=== PATIENT | female | born 1970 | race Hispanic/Latino ===

== ENCOUNTER 2017-04-07 14:36 | Emergency (ER) | payer MEDICARE, MEDICAID ==
[2017-04-07 14:37] VITALS: BMI 30.5
[2017-04-07 14:58] VITALS: RESP 18
--- NOTE | 2017-04-07 15:14 | C.PDOC ---
History Of Present Illness 46 year old female, whose PMHx includes seizures, presents to the ED for evaluation after having a reported seizure with urinary incontinence earlier today. Patient states she ran out of her anti-epileptic medication a few days ago and was awaiting a refill at her doctor's office when she had the episode. She denies fever, chills, tongue bite, extremity numbness/weakness and has no other complaints at this time. Time Seen by Provider: 04/07/17 15:02 Chief Complaint (Nursing): Seizure History Per: Patient History/Exam Limitations: no limitations Recent Seizure Activity Began: Just Before Arrival Number Of Seizures: One Length Of Seizures (Duration): Unknown Precipitating Factor(s): Missed Dose Of Anti-seizure Medication Associated Symptoms: Incontinence Of Urine Additional History Per: Patient Past Medical History Reviewed: Historical Data, Nursing Documentation, Vital Signs Vital Signs: Last Vital Signs Temp 97.9 F 04/07/17 16:21 Pulse 86 04/07/17 16:21 Resp 18 04/07/17 16:21 BP 148/91 H 04/07/17 16:21 Pulse Ox 99 04/07/17 16:39 - Medical History PMH: Anxiety, Depression, Emphysema, Fractures (FINGERS), Gall Bladder Disease, HTN, Osteoporosis, Seizures Denies: Chronic Kidney Disease Surgical History: No Surg Hx - [facility] Procedures INTRAOPER CHOLANGIOGRAM (06/06/14) LAPAROSCOPIC CHOLECYSTECTOMY (06/06/14) LAPAROSCOPIC LIVER BIOPSY (06/06/14) TETANUS TOXOID ADMINIST (03/03/14) Family History: States: Unknown Family Hx - Social History Hx Tobacco Use: Yes Hx Alcohol Use: Yes Hx Substance Use: Yes - Immunization History Hx Tetanus Toxoid Vaccination: No Hx Influenza Vaccination: Yes (12/2013) Hx Pneumococcal Vaccination: No Review Of Systems Constitutional: Negative for: Fever, Chills Genitourinary: Positive for: Incontinence (urinary ) Neurological: Positive for: Seizures. Negative for: Weakness, Numbness Physical Exam - Physical Exam Appears: Non-toxic, No Acute Distress Skin: Normal Color, Warm, Dry Head: Atraumatic, Normacephalic Eye(s): bilateral: Normal Inspection Oral Mucosa: Moist Tongue: No Bite Neck: Supple Chest: Symmetrical, No Deformity, No Tenderness Cardiovascular: Rhythm Regular, No Murmur Respiratory: Normal Breath Sounds, No Rales, No Rhonchi, No Wheezing Gastrointestinal/Abdominal: Soft, No Tenderness, No Guarding, No Rebound Extremity: Normal ROM, Capillary Refill (less than 2 seconds ) Neurological/Psych: Oriented x3, Normal Speech, Normal Cognition Gait: Steady ED Course And Treatment O2 Sat by Pulse Oximetry: 99 (on RA) Pulse Ox Interpretation: Normal Medical Decision Making Medical Decision Making: pt declines any lab work, requests refill of antiepileptic. will dose. signs ama. Disposition - Disposition Referrals: Briana Alanis MD [Staff Provider] - Disposition: AGAINST MEDICAL ADVICE Disposition Time: 04:00 Condition: UNKNOWN Additional Instructions: please follow up with your doctor. return to er with worsening symptoms or concerns. you are declining any lab evaluation. you are able to return to er with any worsening symptoms or concerns. Prescriptions: Lamotrigine [Lamictal] 200 mg PO BID #28 tab levETIRAcetam [Keppra] 250 mg PO BID #28 tab Instructions: Recurrent Seizures in Adults (ED) Forms: [employer] (Frisian) - Clinical Impression Clinical Impression: Seizure - Scribe Statement The provider has reviewed the documentation as recorded by the Scribe (Saima Grant) Provider Attestation: All medical record entries made by the Scribe were at my direction and personally dictated by me. I have reviewed the chart and agree that the record accurately reflects my personal performance of the history, physical exam, medical decision making, and the department course for this patient. I have also personally directed, reviewed, and agree with the discharge instructions and disposition.
[2017-04-07 16:22] VITALS: BP 148/91; PULSE 86; TEMP 97.9
[2017-04-07 16:39] VITALS: O2SAT 99
== END 2017-04-07 16:25 | disposition left against medical advice (07) ==
LOC: C.ER 14:36
DX: G40.909 Epilepsy, unspecified, not intractable, without status epilepticus (principal)

== ENCOUNTER 2018-01-22 20:20 | Inpatient (IN) | payer MEDICARE, MEDICAID ==
[2018-01-22 20:21] VITALS: BMI 30.5
--- NOTE | 2018-01-22 21:31 | C.PDOC ---
History Of Present Illness 47 y/o female, w/PMhx of seizures and HTN, BIBA for evaluation of complaining of left lower back pain which has been present for the past few hours. Patient states that she was sitting on her couch when she had an episode of unconsci ousness. After the episode, she had back pain. Patient states that the pain is severe, constant, and non-radiating. She notes that she has about 1 seizure per year and her last seizure was a very long time ago. She states that the seizures are usually followed by abdominal cramping and an odd smell. She notes that she did have abdominal cramping today. Denies having bleeding and head trauma. PMD: Dr.Hemant Pena Neurologist: Time Seen by Provider: 01/22/18 20:36 Chief Complaint (Nursing): Back Pain History Per: Patient History/Exam Limitations: no limitations Onset/Duration Of Symptoms: Hrs Current Symptoms Are (Timing): Still Present Severity: Moderate Past Medical History Reviewed: Historical Data, Nursing Documentation, Vital Signs Vital Signs: Last Vital Signs Temp 98.3 F 01/22/18 20:37 Pulse 110 H 01/22/18 20:37 Resp 18 01/22/18 20:37 BP 118/80 01/22/18 20:37 Pulse Ox 97 01/22/18 20:37 - Medical History PMH: Anxiety, Depression, Emphysema, Fractures (FINGERS), Gall Bladder Disease, HTN, Osteoporosis, Seizures Denies: Chronic Kidney Disease Surgical History: Cholecystectomy - [facility] Procedures INTRAOPER CHOLANGIOGRAM (06/06/14) LAPAROSCOPIC CHOLECYSTECTOMY (06/06/14) LAPAROSCOPIC LIVER BIOPSY (06/06/14) TETANUS TOXOID ADMINIST (03/03/14) Family History: States: No Known Family Hx - Social History Hx Tobacco Use: Yes Hx Alcohol Use: Yes Hx Substance Use: No (denies) - Immunization History Hx Tetanus Toxoid Vaccination: No Hx Influenza Vaccination: No (12/2013) Hx Pneumococcal Vaccination: No Review Of Systems Except As Marked, All Systems Reviewed And Found Negative. Constitutional: Negative for: Fever, Chills Gastrointestinal: Positive for: Other (abdominal cramping). Negative for: N ausea, Vomiting Musculoskeletal: Positive for: Back Pain Neurological: Negative for: Headache, Dizziness Physical Exam - Physical Exam Additional Physical Exam Comments: Constitutional: No acute distress. Head: Normocephalic. Atraumatic. Eyes: PERRL. ENT: Moist mucous membranes. Neck: Supple. No Midline tenderness. Cardiovascular: Regular rate. Radial pulse 2+ bilaterally. Chest: No tenderness. Respiratory: Clear to auscultation bilaterally. GI: Soft. Nontender. Nondistended. Back: No CVA tenderness. No Midline tenderness. Musculoskeletal: No tenderness or swelling of extremities. Skin: No rash. Neurologic: Alert, no focal deficit. ED Course And Treatment - Laboratory Results Result Diagrams: 01/22/18 21:30 01/22/18 21:30 O2 Sat by Pulse Oximetry: 97 (RA) Pulse Ox Interpretation: Normal - CT Scan/US CT abdomen Other Rad Studies (CT/US): Read By Radiologist, Radiology Report Reviewed CT/US Interpretation: Impression. 1. Bilobed cystic lesion in the left adnexal region, which could represent hydrosalpinx/tubo ovarian abscess although cystic ovarian neoplasm is not completely excluded. Follow up is recommended with pelvic MRI pre- and post-contrast. 2. Left renal nonobstructing calculus. Head CT Other Rad Studies (CT/US): Read By Radiologist, Radiology Report Reviewed CT/US Interpretation: IMPRESSION: Normal unenhanced CT scan of the brain. Medical Decision Making Medical Decision Making: Plan: --Labs --CXR --UA --CT-Abd & Pelv. --Toradol IV At approximately 11:20pm, patient had seizure in ED, bit tongue, ativan administered. Now postical. Performed after seizure in ED, EKG Sinus rhythm, 133 bpm, no ST elevations Dr. Grant accepts patient to his service. Disposition Discussed With : Austen Grant Doctor Will See Patient In The: Hospital - Disposition Disposition: HOSPITALIZED Disposition Time: 00:47 Condition: GUARDED Forms: [employer] [facility] ([employer]) - Clinical Impression Clinical Impression: Recurrent seizures - Scribe Statement The provider has reviewed the documentation as recorded by the Georgeibrober Sanchez Provider Attestation: All medical record entries made by the Scribe were at my direction and personally dictated by me. I have reviewed the chart and agree that the record accurately reflects my personal performance of the history, physical exam, medical decision making, and the department course for this patient. I have also personally directed, reviewed, and agree with the discharge instructions and disposition.
[2018-01-22 21:35] LABS: BASO # 0.2 K/uL (0.0-0.2); HEMOGLOBIN 14.2 g/dL (11.0-16.0); LYMPH # 1.3 K/uL (1.0-4.3); LYMPH % 7.3 % (20.0-40.0); MEAN CELL VOLUME 94.6 fL (81.0-99.0); MEAN CORPUSCULAR HEMOGLOBIN 32.9 pg (27.0-31.0); MEAN CORPUSCULAR HGB CONC 34.8 g/dL (33.0-37.0); MEAN PLATELET VOLUME 8.2 fL (7.2-11.7); MONO # 0.5 K/uL (0.0-0.8); NEUT # 15.5 K/uL (1.8-7.0); NEUT % 88.7 % (50.0-75.0); NRBC % 0.1 % (0.0-2.0); PLATELET COUNT 327 K/uL (130-400); RBC 4.32 Mil/uL (3.80-5.20); RED CELL DISTRIBUTION WIDTH 13.3 % (11.5-14.5); WHITE BLOOD COUNT 17.5 K/uL (4.8-10.8)
[2018-01-22 21:46] LABS: ALB/GLOB RATIO 1.3 (1.0-2.1); ALBUMIN 4.5 g/dL (3.5-5.0); CALCIUM 10.2 mg/dl (8.6-10.4)
[2018-01-22] MEDS ORDERED: Iodixanol 320 MG/ML 100 ML BOTTLE IV ONE (21:56)
[2018-01-22 22:13] LABS: SQUAMOUS EPITHIAL 5 /hpf (0-5); URINE BACTERIA RARE (<OCC); URINE BILIRUBIN NEGATIVE (NEGATIVE); URINE BLOOD 1+ (NEGATIVE); URINE CLARITY Hazy (Clear); URINE COLOR Yellow (YELLOW); URINE GLUCOSE (UA) NORMAL (Normal); URINE LEUKOCYTE ESTERASE NEG Leu/uL (Negative); URINE PROTEIN 1+ mg/dL (NEGATIVE); URINE UROBILINOGEN NORMAL mg/dL (0.2-1.0)
[2018-01-22 22:14] LABS: HCG,QUALITATIVE URINE NEGATIVE (NEGATIVE)
[2018-01-22 22:37] LABS: BANDS 1 % (0-2); LYMPHOCYTE 11 % (20-40); MONOCYTE 1 % (0-10); NEUTROPHIL 87 % (50-75); PLATELET CLUMPS PRESENT; PLATELET ESTIMATE NORMAL (NORMAL); TOTAL CELLS COUNTED 100
[2018-01-22] MEDS ORDERED: Sodium Chloride 0.9% 1,000 ML ONE (23:26)
[2018-01-22 23:52] LABS: BARBITURATES, UR NEGATIVE (NEGATIVE); BENZODIAZEPINES, UR NEGATIVE (NEGATIVE); OPIATES, UR NEGATIVE (NEGATIVE); PHENCYCLIDINE, UR NEGATIVE (NEGATIVE)
[2018-01-23] MEDS ORDERED: levETIRAcetam 500 MG in Sodium Chloride 0.9% 100 ML IVPB STA (00:44)
--- NOTE | 2018-01-23 08:20 | RAD ---
Date of service: 01/22/2018 HISTORY: seizure COMPARISON: 04/11/2015 FINDINGS: LUNGS: The lungs are well inflated. There is mild pulmonary venous congestion. PLEURA: No pleural effusions or pneumothorax. CARDIOVASCULAR: The heart is normal in size. No aortic atherosclerotic calcification present. OSSEOUS STRUCTURES: Within normal limits for the patient's age. VISUALIZED UPPER ABDOMEN: Normal. OTHER FINDINGS: None. IMPRESSION: No active pulmonary disease.
--- NOTE | 2018-01-23 08:25 | CT ---
Date of service: 01/23/2018 PROCEDURE: CT HEAD WITHOUT CONTRAST. HISTORY: recurrent seizures COMPARISON: None available. TECHNIQUE: Axial computed tomography images were obtained through the head/brain without intravenous contrast. Radiation dose: Total exam DLP = 1001.96 mGy-cm. This CT exam was performed using one or more of the following dose reduction techniques: Automated exposure control, adjustment of the mA and/or kV according to patient size, and/or use of iterative reconstruction technique. FINDINGS: Evidence of contrast from preceding CT of the abdomen and pelvis HEMORRHAGE: No intracranial hemorrhage. BRAIN: No mass effect or edema. No atrophy or chronic microvascular ischemic changes.Please note that MRI with diffusion imaging is more sensitive in the detection of acute ischemic event. VENTRICLES: No hydrocephalus. CALVARIUM: Unremarkable. PARANASAL SINUSES: Unremarkable as visualized. No significant inflammatory changes. MASTOID AIR CELLS: Under aeration of the left mastoid air cells; correlate for history of mastoiditis. The right mastoid air cells appear clear. OTHER FINDINGS: None. IMPRESSION: No acute intracranial pathology identified. Under aeration of the left mastoid air cells; correlate for history of mastoiditis. Preliminary impression was provided by [employer].
--- NOTE | 2018-01-23 09:46 | CT ---
Date of service: 01/22/2018 PROCEDURE: CT Abdomen and Pelvis with contrast HISTORY: Abdominal pain, vomiting, r sided back pain after seizure COMPARISON: None. TECHNIQUE: CT scan of the abdomen and pelvis was performed after administration of intravenous contrast. Oral contrast was not administered. Coronal and sagittal reformatted images were obtained. Contrast dose: 100 mL Visipaque 320 Radiation dose: Total exam DLP = 943.66 mGy-cm. This CT exam was performed using one or more of the following dose reduction techniques: Automated exposure control, adjustment of the mA and/or kV according to patient size, and/or use of iterative reconstruction technique. FINDINGS: LOWER THORAX: The visualized lungs are clear. LIVER: Normal in size with homogeneous enhancement. No gross lesion or ductal dilatation. GALLBLADDER AND BILE DUCTS: Well distended. No calcified gallstones, wall thickening or pericholecystic fluid. PANCREAS: Normal in size with homogeneous enhancement. No gross lesion or ductal dilatation. SPLEEN: Normal in size and appearance. ADRENALS: No discrete nodule. KIDNEYS AND URETERS: Normal in size with homogeneous enhancement. There is a 4 mm nonobstructing stone in the left interpolar region. No hydronephrosis. No solid mass. VASCULATURE: No aortic aneurysm. BOWEL: Evaluation of the bowel is limited in the absence of oral contrast. The small bowel loops are normal in caliber. The colon is grossly normal in appearance. No bowel wall thickening or obstruction. APPENDIX: Normal appendix. PERITONEUM: No free fluid. No free air. LYMPH NODES: No enlarged lymph nodes. BLADDER: Well distended and normal in appearance. REPRODUCTIVE: The uterus is normal in size. There is a 3.8 x 6.3 cm cystic mass in the left adnexa. BONES: There is an age indeterminate superior endplate compression fracture in the L1 vertebral body with approximately 50 % loss of central vertebral height, new since prior radiographs from February 2014. No retropulsion. OTHER FINDINGS: None. IMPRESSION: 1. No acute abdominal or pelvic abnormality. 2. 3.8 x 6.3 cm cystic mass in the left adnexa, the differential considerations include simple cyst, cystadenoma and cystadenocarcinoma. Clinical follow-up is advised and given the size of the cystic mass gynecologic consult is recommended. 3. Age indeterminate superior endplate compression fracture in the L1 vertebral body with approximately 50% loss of central vertebral height without retropulsion, new since February 2014. With the stated history of trauma, the possibility of this being an acute fracture is likely however MRI without intravenous contrast may be performed for definitive evaluation of the age of the fracture. A preliminary report was provided by [employer]. The final report is tagged to the PA review folder.
[2018-01-23 11:18] LABS: HEMOGLOBIN 12.9 g/dL (11.0-16.0); MEAN CELL VOLUME 94.9 fL (81.0-99.0); MEAN CORPUSCULAR HEMOGLOBIN 33.2 pg (27.0-31.0); MEAN PLATELET VOLUME 8.7 fL (7.2-11.7); RBC 3.88 Mil/uL (3.80-5.20); RED CELL DISTRIBUTION WIDTH 13.4 % (11.5-14.5); WHITE BLOOD COUNT 15.6 K/uL (4.8-10.8)
[2018-01-23 11:36] LABS: CALCIUM 8.9 mg/dl (8.6-10.4)
[2018-01-23] MEDS: Pantoprazole 40 mg EC Tab PO SCH (12:14)
[2018-01-23] MEDS: Metoprolol Succinate 25 mg XL Tab PO SCH (12:15)
--- NOTE | 2018-01-23 15:50 | MRI ---
Date of service: 01/23/2018 PROCEDURE: MR LUMBAR SPINE WITHOUT CONTRAST HISTORY: L1 COMPRESSION FX ON CT; + BACK PAIN COMPARISON: None available. TECHNIQUE: Multiecho multiplanar sequences were performed through the lumbar spine without the use of intravenous contrast. FINDINGS: There is normal alignment of the lumbar vertebral bodies. There is normal lumbar lordosis. There is an acute superior endplate compression fracture in the L1 vertebral body with approximately 50 % loss of central vertebral height and mild posterior superior retropulsion of fracture fragment which indents the ventral thecal sac without spinal canal stenosis. There is associated bone marrow edema/contusion in the L1 vertebral body. There is a hemangioma in the right L4 vertebral body. The conus medullaris terminates at a normal level and the nerve roots of cauda equina are normal. Paraspinous soft tissues are normal. Imaged portion of the retroperitoneum is within normal limits. T12-L1: No large disc herniation, neural foraminal or spinal canal stenosis. L1-2: No disc herniation, spinal canal stenosis or neural foraminal narrowing. L2-3: Mild posterior disc bulge and mild ligamentum flavum infolding without central spinal canal stenosis. Mild bilateral facet arthropathy contribute to mild neural foraminal narrowing. L3-4: Diffuse posterior disc bulge in conjunction with mild ligamentum flavum infolding result in mild spinal canal stenosis. Moderate bilateral facet arthropathy contribute to mild neural foraminal narrowing. L4-5: Diffuse posterior disc bulge with superimposed small central disc protrusion in conjunction with mild ligamentum flavum infolding result in mild spinal canal stenosis. Also noted is superimposed left foraminal and far lateral annular tear and disc protrusion which abut the exiting left L4 nerve root. Moderate bilateral facet arthropathy contribute to mild right and moderate left neural foraminal narrowing. L5-S1: Mild posterior disc bulge and mild ligamentum flavum infolding without central spinal canal stenosis. Mild facet arthropathy without neural foraminal narrowing. OTHER FINDINGS: None. IMPRESSION: 1. Acute superior endplate compression fracture in the L1 vertebral body with approximately 50% loss of central vertebral height and mild posterosuperior retropulsion of fracture fragment which indents the ventral thecal sac without cord compression or central spinal canal stenosis. 2. Mild multilevel degenerative disc disease, worse at L4-5 with a diffuse posterior disc bulge and superimposed left foraminal and far lateral annular tear and disc protrusions which abut the exiting left L4 nerve root with resultant mild spinal canal stenosis, mild right and moderate left neural foraminal narrowing.
--- NOTE | 2018-01-23 15:53 | MRI ---
Date of service: 01/23/2018 PROCEDURE: MR THORACIC SPINE WITHOUT CONTRAST HISTORY: L1 COMPRESSION FX ON CT; + BACK PAIN COMPARISON: None available. TECHNIQUE: Multiecho multiplanar sequences were performed through the thoracic spine without the use of intravenous contrast. FINDINGS: ALIGNMENT: There is normal alignment of the thoracic vertebral bodies. There is normal thoracic kyphosis. VERTEBRA: Vertebral body height are preserved. No acute fracture in the thoracic spine. MARROW: There are multilevel Schmorl's nodes in the mid and lower thoracic spine. The largest Elida node is seen at the superior endplate of T12 vertebral body with mild surrounding vasogenic edema. Otherwise, bone marrow signal is within normal limits. PARASPINAL SOFT TISSUES: The paraspinous soft tissues are normal. CORD: The thoracic cord is normal in contour, caliber and has normal intrinsic signal. DISCS: Mild multilevel disc degeneration with loss of normal T2 signal. No evidence of large disc herniation, neural foraminal or spinal canal stenosis. OTHER FINDINGS: None. IMPRESSION: 1. No acute fracture in the thoracic spine. 2. Mild multilevel degenerative disc disease with multilevel Schmorl's nodes, the largest at the superior endplate of T12 vertebral body with mild surrounding vasogenic edema. No spinal canal stenosis or neural foraminal narrowing.
[2018-01-23] MEDS: Potassium Chloride 20 mEq ER Tab PO SCH (17:28)
--- NOTE | 2018-01-23 20:00 | CP.PCM.HP ---
Past Patient History - Infectious Disease Hx of Infectious Diseases: None - Past Medical History & Family History Past Medical History?: Yes - Past Social History Smoking Status: Never Smoked - CARDIAC Hx Hypertension: Yes - PULMONARY Hx Emphysema: Yes - NEUROLOGICAL Hx Seizures: Yes - HEENT Hx HEENT Problems: Yes (GLASSES) - RENAL Hx Chronic Kidney Disease: No - ENDOCRINE/METABOLIC Hx Endocrine Disorders: No - HEMATOLOGICAL/ONCOLOGICAL Hx Blood Disorders: No - INTEGUMENTARY Hx Dermatological Problems: No - MUSCULOSKELETAL/RHEUMATOLOGICAL Hx Falls: No Hx Fractures: Yes (FINGERS) Hx Osteoporosis: Yes - GASTROINTESTINAL Hx Gall Bladder Disease: Yes - GENITOURINARY/GYNECOLOGICAL Hx Genitourinary Disorders: No - PSYCHIATRIC Hx Anxiety: Yes Hx Depression: Yes Hx Substance Use: No (denies) - SURGICAL HISTORY Hx Cholecystectomy: Yes - ANESTHESIA Hx Anesthesia: Yes Hx Anesthesia Reactions: No Hx Malignant Hyperthermia: No Meds Allergies/Adverse Reactions: Allergies Allergy/AdvReac Type Severity Reaction Status Date / Time No Known Allergies Allergy Verified 04/07/17 14:58 Physical Exam - Constitutional Appears: Well - Head Exam Head Exam: ATRAUMATIC, NORMAL INSPECTION, NORMOCEPHALIC - Eye Exam Eye Exam: EOMI, Normal appearance, PERRL Pupil Exam: NORMAL ACCOMODATION, PERRL - ENT Exam ENT Exam: Mucous Membranes Moist, Normal Exam - Neck Exam Neck exam: Positive for: Normal Inspection - Respiratory Exam Respiratory Exam: Decreased Breath Sounds - Cardiovascular Exam Cardiovascular Exam: REGULAR RHYTHM, +S1, +S2 - GI/Abdominal Exam GI & Abdominal Exam: Soft - Rectal Exam Rectal Exam: Deferred Results - Vital Signs Recent Vital Signs: Last Vital Signs Temp 98.4 F 01/23/18 16:00 Pulse 85 01/23/18 18:00 Resp 20 01/23/18 16:00 BP 97/77 L 01/23/18 16:00 Pulse Ox 95 01/23/18 16:00 - Labs Result Diagrams: 01/23/18 11:11 01/23/18 11:11 Labs: Laboratory Results - last 24 hr 01/22/18 01/22/18 01/22/18 21:30 21:30 22:02 WBC 17.5 H RBC 4.32 Hgb 14.2 Hct 40.9 MCV 94.6 D MCH 32.9 H MCHC 34.8 RDW 13.3 Plt Count 327 MPV 8.2 Neut % (Auto) 88.7 H Lymph % (Auto) 7.3 L [place] % (Auto) 3.0 Eos % (Auto) 0.0 Baso % (Auto) 1.0 Neut # (Auto) 15.5 H Lymph # (Auto) 1.3 [place] # (Auto) 0.5 Eos # (Auto) 0.0 Baso # (Auto) 0.2 Neutrophils % (Manual) 87 H Band Neutrophils % 1 Lymphocytes % (Manual) 11 L Monocytes % (Manual) 1 Platelet Estimate Normal Plt Clumps, EDTA Present Sodium 142 Potassium 3.3 L Chloride 102 Carbon Dioxide 24 Anion Gap 19 BUN 9 Creatinine 1.2 Est GFR ( Amer) 58 Est GFR (Non-Af Amer) 48 Random Glucose 119 H Calcium 10.2 Total Bilirubin 0.8 AST 21 ALT 22 Alkaline Phosphatase 116 Total Protein 8.0 Albumin 4.5 Globulin 3.5 Albumin/Globulin Ratio 1.3 Lipase 53 Urine Color Yellow Urine Clarity Hazy Urine pH 5.0 Ur Specific Adrian 1.015 Urine Protein 1+ H Urine Glucose (UA) Normal Urine Ketones Negative Urine Blood 1+ H Urine Nitrate Negative Urine Bilirubin Negative Urine Urobilinogen Normal Ur Leukocyte Esterase Neg Urine WBC (Auto) 3 Urine RBC (Auto) 5 H Ur Squamous Epith Cells 5 Urine Bacteria Rare Urine HCG, Qual Negative Urine Opiates Screen Urine Methadone Screen Ur Barbiturates Screen Ur Phencyclidine Scrn Ur Amphetamines Screen U Benzodiazepines Scrn U Oth Cocaine Metabols U Cannabinoids Screen Alcohol, Quantitative 01/22/18 01/22/18 01/23/18 23:31 23:31 11:11 WBC 15.6 H RBC 3.88 Hgb 12.9 Hct 36.8 MCV 94.9 MCH 33.2 H MCHC 35.0 RDW 13.4 Plt Count 261 MPV 8.7 Neut % (Auto) Lymph % (Auto) [place] % (Auto) Eos % (Auto) Baso % (Auto) Neut # (Auto) Lymph # (Auto) [place] # (Auto) Eos # (Auto) Baso # (Auto) Neutrophils % (Manual) Band Neutrophils % Lymphocytes % (Manual) Monocytes % (Manual) Platelet Estimate Plt Clumps, EDTA Sodium Potassium Chloride Carbon Dioxide Anion Gap BUN Creatinine Est GFR ( Amer) Est GFR (Non-Af Amer) Random Glucose Calcium Total Bilirubin AST ALT Alkaline Phosphatase Total Protein Albumin Globulin Albumin/Globulin Ratio Lipase Urine Color Urine Clarity Urine pH Ur Specific Adrian Urine Protein Urine Glucose (UA) Urine Ketones Urine Blood Urine Nitrate Urine Bilirubin Urine Urobilinogen Ur Leukocyte Esterase Urine WBC (Auto) Urine RBC (Auto) Ur Squamous Epith Cells Urine Bacteria Urine HCG, Qual Urine Opiates Screen Negative Urine Methadone Screen Negative Ur Barbiturates Screen Negative Ur Phencyclidine Scrn Negative Ur Amphetamines Screen Negative U Benzodiazepines Scrn Negative U Oth Cocaine Metabols Negative U Cannabinoids Screen Positive H Alcohol, Quantitative < 10 01/23/18 11:11 WBC RBC Hgb Hct MCV MCH MCHC RDW Plt Count MPV Neut % (Auto) Lymph % (Auto) [place] % (Auto) Eos % (Auto) Baso % (Auto) Neut # (Auto) Lymph # (Auto) [place] # (Auto) Eos # (Auto) Baso # (Auto) Neutrophils % (Manual) Band Neutrophils % Lymphocytes % (Manual) Monocytes % (Manual) Platelet Estimate Plt Clumps, EDTA Sodium 140 Potassium 3.1 L Chloride 106 Carbon Dioxide 24 Anion Gap 13 BUN 10 Creatinine 1.2 Est GFR ( Amer) 58 Est GFR (Non-Af Amer) 48 Random Glucose 108 H Calcium 8.9 Total Bilirubin AST ALT Alkaline Phosphatase Total Protein Albumin Globulin Albumin/Globulin Ratio Lipase Urine Color Urine Clarity Urine pH Ur Specific Adrian Urine Protein Urine Glucose (UA) Urine Ketones Urine Blood Urine Nitrate Urine Bilirubin Urine Urobilinogen Ur Leukocyte Esterase Urine WBC (Auto) Urine RBC (Auto) Ur Squamous Epith Cells Urine Bacteria Urine HCG, Qual Urine Opiates Screen Urine Methadone Screen Ur Barbiturates Screen Ur Phencyclidine Scrn Ur Amphetamines Screen U Benzodiazepines Scrn U Oth Cocaine Metabols U Cannabinoids Screen Alcohol, Quantitative
[2018-01-24] MEDS: Potassium Chloride 20 mEq ER Tab PO SCH (09:54)
[2018-01-24] MEDS: Metoprolol Succinate 25 mg XL Tab PO SCH (09:55)
[2018-01-24] MEDS: Pantoprazole 40 mg EC Tab PO SCH (09:55)
[2018-01-24] MEDS ORDERED: Influenza Vaccine 60 MCG/0.5 ML SYR (3 yr & up) IM ONE (10:00)
[2018-01-24] MEDS ORDERED: Pneumococcal 23-Valent Vaccine IM ONE (10:00)
--- NOTE | 2018-01-24 13:51 | CP.PCM.PN ---
Subjective - Date & Time of Evaluation Date of Evaluation: 01/24/18 Time of Evaluation: 09:30 - Subjective Subjective: clinically same Objective - Vital Signs/Intake and Output Vital Signs (last 24 hours): Temp Pulse Resp BP Pulse Ox 98.0 F 69 18 100/67 95 01/24/18 07:00 01/24/18 07:00 01/24/18 07:00 01/24/18 07:00 01/24/18 07:00 - Medications Medications: Current Medications Acetaminophen (Tylenol 325mg Tab) 650 mg PO Q6 PRN PRN Reason: Pain, Mild (1-3) Last Admin: 01/24/18 04:45 Dose: 650 mg Hydrochlorothiazide (Microzide) 12.5 mg PO DAILY [facility] Last Admin: 01/24/18 09:55 Dose: 12.5 mg Lamotrigine (Lamictal) 200 mg PO BID [facility] Last Admin: 01/24/18 09:55 Dose: 200 mg Levetiracetam (Keppra) 750 mg PO BID [facility] Last Admin: 01/24/18 09:54 Dose: 750 mg Lisinopril (Zestril) 20 mg PO DAILY [facility] Last Admin: 01/24/18 09:59 Dose: 20 mg Loratadine (Claritin) 10 mg PO DAILY [facility] Last Admin: 01/24/18 09:55 Dose: 10 mg Metoprolol Succinate (Toprol Xl) 25 mg PO DAILY [facility] Last Admin: 01/24/18 09:55 Dose: 25 mg Pantoprazole Sodium (Protonix Ec Tab) 40 mg PO DAILY [facility] Last Admin: 01/24/18 09:55 Dose: 40 mg - Labs Labs: 01/23/18 11:11 01/23/18 11:11
--- NOTE | 2018-01-24 15:05 | CP.PCM.CON ---
History of Present Illness - History of Present Illness History of Present Illness: SPINE Pt seen and examined. Full consult dictated. Rec surgical stabilization with T12-L2 fusion. Other option is for pt to wear TLSO whenever up for next 2-3 months. The brace may still not prevent further settling and collapse at the fx site, and the resultant increase in kyphosis may require surgery at that time. Pt wishes to think about it and discuss with family. Past Patient History - Infectious Disease Hx of Infectious Diseases: None - Past Medical History & Family History Past Medical History?: Yes - Past Social History Smoking Status: Never Smoked - CARDIAC Hx Hypertension: Yes - PULMONARY Hx Emphysema: Yes - NEUROLOGICAL Hx Seizures: Yes - HEENT Hx HEENT Problems: Yes (GLASSES) - RENAL Hx Chronic Kidney Disease: No - ENDOCRINE/METABOLIC Hx Endocrine Disorders: No - HEMATOLOGICAL/ONCOLOGICAL Hx Blood Disorders: No - INTEGUMENTARY Hx Dermatological Problems: No - MUSCULOSKELETAL/RHEUMATOLOGICAL Hx Falls: No Hx Fractures: Yes (FINGERS) Hx Osteoporosis: Yes - GASTROINTESTINAL Hx Gall Bladder Disease: Yes - GENITOURINARY/GYNECOLOGICAL Hx Genitourinary Disorders: No - PSYCHIATRIC Hx Anxiety: Yes Hx Depression: Yes Hx Substance Use: No (denies) - SURGICAL HISTORY Hx Cholecystectomy: Yes - ANESTHESIA Hx Anesthesia: Yes Hx Anesthesia Reactions: No Hx Malignant Hyperthermia: No Meds Allergies/Adverse Reactions: Allergies Allergy/AdvReac Type Severity Reaction Status Date / Time No Known Allergies Allergy Verified 04/07/17 14:58 - Medications Medications: Current Medications Acetaminophen (Tylenol 325mg Tab) 650 mg PO Q6 PRN PRN Reason: Pain, Mild (1-3) Last Admin: 01/24/18 04:45 Dose: 650 mg Hydrochlorothiazide (Microzide) 12.5 mg PO DAILY [facility] Last Admin: 01/24/18 09:55 Dose: 12.5 mg Lamotrigine (Lamictal) 200 mg PO BID [facility] Last Admin: 01/24/18 09:55 Dose: 200 mg Levetiracetam (Keppra) 750 mg PO BID [facility] Last Admin: 01/24/18 09:54 Dose: 750 mg Lisinopril (Zestril) 20 mg PO DAILY [facility] Last Admin: 01/24/18 09:59 Dose: 20 mg Loratadine (Claritin) 10 mg PO DAILY [facility] Last Admin: 01/24/18 09:55 Dose: 10 mg Metoprolol Succinate (Toprol Xl) 25 mg PO DAILY [facility] Last Admin: 01/24/18 09:55 Dose: 25 mg Pantoprazole Sodium (Protonix Ec Tab) 40 mg PO DAILY [facility] Last Admin: 01/24/18 09:55 Dose: 40 mg Results - Vital Signs Recent Vital Signs: Last Vital Signs Temp 98.0 F 01/24/18 07:00 Pulse 69 01/24/18 07:00 Resp 18 01/24/18 07:00 BP 100/67 01/24/18 07:00 Pulse Ox 95 01/24/18 07:00 - Labs Result Diagrams: 01/23/18 11:11 01/23/18 11:11
[2018-01-24 17:31] LABS: ALB/GLOB RATIO 1.4 (1.0-2.1); ALBUMIN 4.3 g/dL (3.5-5.0); CALCIUM 9.3 mg/dl (8.6-10.4)
--- NOTE | 2018-01-24 21:56 | CON ---
DATE: 01/24/2018 REASON FOR CONSULTATION: Fracture, spine. HISTORY OF PRESENT ILLNESS: The patient is a 47 a woman who states she was at home on, she believes when she evidently went unconscious. She does not recall exactly what happened or how she was found or where she was found. She cannot tell me if she know she fell because she was on the floor, etc. She was brought to the emergency room. She states after this happened, she had acute onset of pain in her back. She denies having any issues with their back, such as this prior to this episode. She states she never lost control of her bowel or bladder. She does not complain of any pain radiating into the legs. If she lays just without moving, she is relatively comfortable but as soon as she tries to move, she states the pain goes up to at least 8/10. PAST MEDICAL HISTORY: Significant for hypertension, emphysema, and seizure disorder. She states she has not had seizure in years, as she has been on medication until this happened, if it was indeed another seizure. MEDICATIONS: Medicines are as listed on the chart. ALLERGIES: SHE DENIES ANY ALLERGIES TO ANY MEDICATIONS. PAST SURGICAL HISTORY: Significant for cholecystectomy many years ago. REVIEW OF SYSTEMS: She does state she had a bone density test done many years ago when she was first placed on the seizure medication, and she was told she had osteoporosis, although she was never put on any kind of medication for it nor has she been taking any kind of calcium/vitamin D regimens. She states she did have a history of other fractures, but it was evidently fractured stingers following a fall where she fell out onto her outstretched hands. Otherwise, no spontaneous fractures or anything of that nature. SOCIAL HISTORY: She states she was a two-pack a day smoker since she was 12 and quit 2 years ago. PHYSICAL EXAMINATION EXTREMITIES: She has tenderness to palpation in the thoracolumbar junction. No other tenderness lower down the lumbar region. She moves both lower extremities fully and actively. Sensation is intact to light touch. She has excellent motor strength throughout. Reflexes are intact and symmetrical. No clonus is present. Babinski showed toes downgoing bilaterally. Decent distal pulses. DIAGNOSTIC DATA: MRI of lumbar spine shows a significant compression fracture of L1. Technically, is a burst fracture, the superior posterior corner is retropulsed into canal and is just abutting the ventral surface of the cord, but not cause any significant deformity. Again, she has fractures depressed more than 50% of the vertebral height. IMPRESSION: Fracture L1. Technically, this is a burst fracture and is unstable as she has compressed more than 50% of the vertebral body. However, she is neurologically intact. She is at this point resistant to any kind of surgical procedure which was explained to her to stabilize this fracture and would prevent any further collapse, most likely prevent any further collapse at the fracture site. The other option would be to put her in a TLSO brace, which would prevent any excessive flexion/extension movements but would not prevent completely any type of settling at the fracture site with her standing and adjusting the pull of gravity. She had me speak to her brother on the phone. I explained this as well. They are going to talk it over and decide what they would like to do. I explained that we could not get anybody here until Friday in terms of trying to fit her with a brace. If they opted for this surgery, she would not need the brace and we will tentatively plan on doing this Friday as well, pending medical clearance. She states she understood everything as explained to her and will talk it over with the family and then let us know. Thank you for allowing me to participate in the care of your patient. Cas Smith MD
[2018-01-24] MEDS ORDERED: Potassium Chloride 20 mEq ER Tab PO ONE (22:00)
[2018-01-25] MEDS: Metoprolol Succinate 25 mg XL Tab PO SCH (10:21)
[2018-01-25] MEDS: Pantoprazole 40 mg EC Tab PO SCH (10:22)
--- NOTE | 2018-01-25 14:46 | CP.PCM.PN ---
Subjective - Date & Time of Evaluation Date of Evaluation: 01/25/18 Time of Evaluation: 09:30 - Subjective Subjective: clinically same Objective - Vital Signs/Intake and Output Vital Signs (last 24 hours): Temp Pulse Resp BP Pulse Ox 98.8 F 70 20 91/62 L 96 01/25/18 07:00 01/25/18 07:55 01/25/18 07:00 01/25/18 07:00 01/25/18 07:00 - Medications Medications: Current Medications Acetaminophen (Tylenol 325mg Tab) 650 mg PO Q6 PRN PRN Reason: Pain, Mild (1-3) Last Admin: 01/24/18 04:45 Dose: 650 mg Hydrochlorothiazide (Microzide) 12.5 mg PO DAILY [facility] Last Admin: 01/25/18 10:22 Dose: 12.5 mg Ibuprofen (Motrin Tab) 600 mg PO Q8 PRN PRN Reason: Pain, moderate (4-7) Last Admin: 01/25/18 10:23 Dose: 600 mg Lamotrigine (Lamictal) 200 mg PO BID [facility] Last Admin: 01/25/18 10:21 Dose: 200 mg Levetiracetam (Keppra) 750 mg PO BID [facility] Last Admin: 01/25/18 10:22 Dose: 750 mg Lisinopril (Zestril) 20 mg PO DAILY [facility] Last Admin: 01/25/18 10:22 Dose: 20 mg Loratadine (Claritin) 10 mg PO DAILY [facility] Last Admin: 01/25/18 10:22 Dose: 10 mg Metoprolol Succinate (Toprol Xl) 25 mg PO DAILY [facility] Last Admin: 01/25/18 10:21 Dose: 25 mg Pantoprazole Sodium (Protonix Ec Tab) 40 mg PO DAILY [facility] Last Admin: 01/25/18 10:22 Dose: 40 mg - Labs Labs: 01/23/18 11:11 01/24/18 17:06 - Constitutional Appears: Well - Head Exam Head Exam: ATRAUMATIC, NORMAL INSPECTION, NORMOCEPHALIC - Eye Exam Eye Exam: EOMI, Normal appearance, PERRL Pupil Exam: NORMAL ACCOMODATION, PERRL - ENT Exam ENT Exam: Mucous Membranes Moist, Normal Exam - Neck Exam Neck Exam: Full ROM, Normal Inspection. absent: Lymphadenopathy - Respiratory Exam Respiratory Exam: Decreased Breath Sounds - Cardiovascular Exam Cardiovascular Exam: REGULAR RHYTHM, +S1, +S2 - GI/Abdominal Exam GI & Abdominal Exam: Soft, Diminished Bowel Sounds - Rectal Exam Rectal Exam: Deferred
--- NOTE | 2018-01-25 19:19 | CON ---
DATE: 01/25/2018 REASON FOR CONSULTATION: Seizure. HISTORY OF PRESENT ILLNESS: The patient is a 47-year-old female with a history of seizure disorder, was apparently brought here after she had a seizure. The patient was apparently sitting in her couch and then passed out. The patient does not remember the events. The patient thinks she had a seizure. Her last seizure was a year ago. She has been taking Keppra 500 mg twice a day and has been doing quite well. She complains of low back pain. Denies any headache or dizziness. REVIEW OF SYSTEMS: Denies any headache, dizziness, chest pain, shortness of breath, abdominal pain, constipation, diarrhea, dysuria, cough, or sputum production. PAST MEDICAL HISTORY: Includes seizure disorder, hypertension. MEDICATIONS: At home included metoprolol, lisinopril, , Lexapro, Lipitor, Keppra 500 mg b.i.d., lamotrigine 200 mg b.i.d., and ibuprofen p.r.n. ALLERGIES: NO KNOWN DRUG ALLERGIES. FAMILY HISTORY: Reviewed and noncontributory to the case. SOCIAL HISTORY: Denies smoking, use of alcohol or illicit drugs. She is an ex-smoker. PHYSICAL EXAMINATION: GENERAL: The patient is a middle-aged female, lying in the bed, in no acute distress. VITAL SIGNS: Her blood pressure is 91/62, heart rate is 67 per minute, breathing at the rate of 16 per minute, and temperature is 98.8 degrees Fahrenheit. HEENT: Normocephalic, atraumatic. NECK: Supple. There are no carotid bruits. LUNGS: Clear. CARDIOVASCULAR SYSTEM: S1, S2 audible. No murmurs. ABDOMEN: Soft, nontender. Bowel sounds are present. NEUROLOGIC EXAMINATION: Mental status: The patient is awake, alert, oriented to time, place, and person. Speech is full, naming and repetition normal. Memory and cognition are intact. Cranial nerve examination: Pupils are 3 mm bilaterally, reactive to light. Visual barbour are full. Extraocular movements are intact. There is no facial asymmetry. Palate is upgoing bilaterally and tongue is midline. Motor examination: Tone is normal and power is 5/5 bilaterally in all extremities. Reflexes are +2 and symmetrical. Plantar is downgoing bilaterally. LABORATORY DATA: Labs reviewed, showed WBC of 16.6, hemoglobin of 12.9, hematocrit 36.8, and platelets of 261. Sodium is 140, potassium 3.1, chloride 106, carbon dioxide 24, BUN of 10, creatinine 1.2, and glucose of 108. Her urine toxicology screen is positive for cannabinoids. She had a CT scan of the head, which shows no acute intracranial pathology. She had MRI of the lumbar spine, which shows acute superior end-plate compression fracture in the L1 vertebral body, approximately 30% loss of vertebral height. IMPRESSION: 1. Breakthrough seizure with history of seizure disorder. 2. L1 vertebral compression fracture. RECOMMENDATIONS: 1. The patient's Keppra dose is to be increased to 750 mg twice a day. 2. The patient may program, which may be done as outpatient. 3. The patient is to have Spine Surgery evaluation for her compression fracture. 4. We will discontinue tramadol because of low seizure threshold and put the patient on ibuprofen p.r.n. 5. Please continue supportive care and other treatment. Thank you for this opportunity to participate in the care of this patient. Briana Alanis MD
[2018-01-25] MEDS ORDERED: Potassium Chloride 20 mEq ER Tab PO ONE (22:00)
[2018-01-26 07:55] LABS: BASO # 0.1 K/uL (0.0-0.2); BASO % 1.3 % (0.0-2.0); EOS # 0.3 K/uL (0.0-0.7); EOS % 2.3 % (0.0-4.0); HEMOGLOBIN 14.1 g/dL (11.0-16.0); LYMPH # 2.2 K/uL (1.0-4.3); LYMPH % 19.7 % (20.0-40.0); MEAN CELL VOLUME 95.5 fL (81.0-99.0); MEAN CORPUSCULAR HEMOGLOBIN 33.4 pg (27.0-31.0); MEAN CORPUSCULAR HGB CONC 34.9 g/dL (33.0-37.0); MEAN PLATELET VOLUME 7.9 fL (7.2-11.7); MONO # 0.8 K/uL (0.0-0.8); NEUT # 7.9 K/uL (1.8-7.0); NEUT % 69.7 % (50.0-75.0); NRBC % 0.1 % (0.0-2.0); RBC 4.22 Mil/uL (3.80-5.20); RED CELL DISTRIBUTION WIDTH 13.3 % (11.5-14.5); WHITE BLOOD COUNT 11.3 K/uL (4.8-10.8)
[2018-01-26 08:18] LABS: ALB/GLOB RATIO 1.4 (1.0-2.1); ALBUMIN 4.4 g/dL (3.5-5.0); CALCIUM 9.3 mg/dl (8.6-10.4)
[2018-01-26 08:40] LABS: INR 1.2
--- NOTE | 2018-01-26 08:45 | CP.PCM.PN ---
Subjective - Date & Time of Evaluation Date of Evaluation: 01/26/18 Time of Evaluation: 11:36 - Subjective Subjective: Patient has been seen and examined at bedside. Patient states that her back is sore but the pain got slightly better. She denies any fevers, chills, chest pain, SOB, abdominal pain, nausea, vomiting, diarrhea, urinary symptoms, saddle anaesthesia, or any urinary/bowel incontinence. She has decided to proceed with the back surgery today and was told that it would take place at 11:00AM today. Objective - Vital Signs/Intake and Output Vital Signs (last 24 hours): Temp Pulse Resp BP Pulse Ox 99.0 F 59 L 18 100/69 96 01/26/18 07:00 01/26/18 07:00 01/26/18 07:00 01/26/18 07:00 01/26/18 07:00 - Medications Medications: Current Medications Acetaminophen (Tylenol 325mg Tab) 650 mg PO Q6 PRN PRN Reason: Pain, Mild (1-3) Last Admin: 01/24/18 04:45 Dose: 650 mg Alprazolam (Xanax) 0.25 mg PO DAILY PRN PRN Reason: Anxiety Stop: 02/01/18 16:05 Last Admin: 01/25/18 16:42 Dose: 0.25 mg Hydrochlorothiazide (Microzide) 12.5 mg PO DAILY [facility] Last Admin: 01/25/18 10:22 Dose: 12.5 mg Ibuprofen (Motrin Tab) 600 mg PO Q8 PRN PRN Reason: Pain, moderate (4-7) Last Admin: 01/25/18 10:23 Dose: 600 mg Lamotrigine (Lamictal) 200 mg PO BID [facility] Last Admin: 01/25/18 17:40 Dose: 200 mg Levetiracetam (Keppra) 750 mg PO BID [facility] Last Admin: 01/25/18 17:40 Dose: 750 mg Lisinopril (Zestril) 20 mg PO DAILY [facility] Last Admin: 01/25/18 10:22 Dose: 20 mg Loratadine (Claritin) 10 mg PO DAILY [facility] Last Admin: 01/25/18 10:22 Dose: 10 mg Metoprolol Succinate (Toprol Xl) 25 mg PO DAILY [facility] Last Admin: 01/25/18 10:21 Dose: 25 mg Pantoprazole Sodium (Protonix Ec Tab) 40 mg PO DAILY [facility] Last Admin: 01/25/18 10:22 Dose: 40 mg - Labs Labs: 01/26/18 07:51 01/26/18 07:51 PT 13.0 SECONDS (9.7-12.2) H 01/26/18 07:51 INR 1.2 01/26/18 07:51 APTT 34 SECONDS (21-34) 01/26/18 07:51 - Constitutional Appears: Well, Non-toxic, No Acute Distress - Head Exam Head Exam: ATRAUMATIC, NORMAL INSPECTION, NORMOCEPHALIC - Eye Exam Eye Exam: EOMI - ENT Exam ENT Exam: Mucous Membranes Moist - Respiratory Exam Respiratory Exam: Clear to Ausculation Bilateral. absent: Accessory Muscle Use - Cardiovascular Exam Cardiovascular Exam: RRR, +S1, +S2 - GI/Abdominal Exam GI & Abdominal Exam: Soft. absent: Tenderness - Extremities Exam Extremities Exam: absent: Pedal Edema - Back Exam Back Exam: paraspinal tenderness (Lumbar) - Neurological Exam Neurological Exam: Alert, Awake, Oriented x3 - Psychiatric Exam Psychiatric exam: Normal Affect, Normal Mood - Skin Skin Exam: Dry, Intact, Normal Color, Warm Assessment and Plan - Assessment and Plan (Free Text) Assessment: 47 year old female with a PMHx of seizure disorder, hyperlipidemia, HTN, and tobacco abuse admitted for evaluation and treatment of lumbar compression fracture likely 2/2 to fall 2/2 to seizure. Plan: Seizure Neurology Consulted (Dr. Alanis), Recs Appreciated Seizure precautions. Refrain from meds that will lower seizure threshold including Tramadol Head CT (Admission): No acute intracranial pathology identified. Under aeration of the left mastoid air cells; correlate for history of mastoiditis. EEG (01/23): Follow UP Meds: Keppra 750 BID [facility] <---Inc. during this visit Lamictal 200mg PO BID [facility]. Lumbar Compression Fracture: Neurosurgery Consulted (Dr. Luis Salazar), Recs appreciated Cardiology Consulted for Cardiac Clearance (Dr. Garcia) CT Abd/Pelvis (Admission): 1.) No acute abdominal or pelvic abnormality. 2.) 3.8 x 6.3 cm cystic mass in the left adnexa, the differential considerations include simple cyst, cystadenoma and cystadenocarcinoma. Clinical follow-up is advised and given the size of the cystic mass gynecologic consult is recommended. 3.) Age indeterminate superior endplate compression fracture in the L1 vertebral body with approximately 50% loss of central vertebral height without r etropulsion, new since February 2014. With the stated history of trauma, the possibility of this being an acute fracture is likely however MRI without intravenous contrast may be performed for definitive evaluation of the age of the fracture. Lumbar Spine MRI (01/23/18): 1. Acute superior endplate compression fracture in the L1 vertebral body with approximately 50% loss of central vertebral height and mild posterosuperior retropulsion of fracture fragment which indents the ventral thecal sac without cord compression or central spinal canal stenosis. 2. Mild multilevel degenerative disc disease, worse at L4-5 with a diffuse posterior disc bulge and superimposed left foraminal and far lateral annular tear and disc protrusions which abut the exiting left L4 nerve root with resultant mild spinal canal stenosis, mild right and moderate left neural foraminal narrowing.\ Thoracis Spine MRI (01/23/18): 1. No acute fracture in the thoracic spine. 2. Mild multilevel degenerative disc disease with multilevel Schmorl's nodes, the largest at the superior endplate of T12 vertebral body with mild surrounding vasogenic edema. No spinal canal stenosis or neural foraminal narrowing. Spinal Fusion planned for today (01/26) PT/OT NPO Meds: Tylenol PRN Ibuprofen Q8H PRN NS @ 100mls/hr Cystic Mass Incidental Finding on CT CT Abd/Pelvis (Admission): 1.) No acute abdominal or pelvic abnormality. 2.) 3.8 x 6.3 cm cystic mass in the left adnexa, the differential considerations include simple cyst, cystadenoma and cystadenocarcinoma. Clinical follow-up is advised and given the size of the cystic mass gynecologic consult is recommended. Will Order Pelvic US. Will Consider inpatient vs outpatient Ob-baker test Referral post Pelvic US results. Hypertension: Meds: HCTZ 12.5mg Daily Lisinopril 20mg PO Daily Metoprolol 25mg PO Daily Hypokalemia Meds: 20meQ KCL given once today Anxiety Meds: Xanax 0.25mg PRN Proph NPO for surgery Lovenox (Held for surgery) Protonix. Patient to be discussed with Dr. Nesha Lyons, PGY-2
--- NOTE | 2018-01-26 09:28 | CP.PCM.CON ---
History of Present Illness - History of Present Illness History of Present Illness: 47 y/o woman who had ? seizure or mechanical fall and suffered vertebal FX We are called for pre-op eval prior to T12-L2 fusion. PMHX: HTN controlled, LIPIDS on statin, Seizure disorder SocHx: occasional smoker now, 1/2 pack prior 1-2 years ago, > 2-3 years ago reports cocaine use Activity: moderate prior to acute injury above, no CHF or anginal sx's reported and was able to perform > 4 mets without cardiac sx's Currently: No CP or SOB, no fevers or chills Review of Systems - Review of Systems All systems: reviewed and no additional remarkable complaints except Past Patient History - Infectious Disease Hx of Infectious Diseases: None - Past Medical History & Family History Past Medical History?: Yes - Past Social History Smoking Status: Never Smoked - CARDIAC Hx Hypertension: Yes - PULMONARY Hx Emphysema: Yes - NEUROLOGICAL Hx Seizures: Yes - HEENT Hx HEENT Problems: Yes (GLASSES) - RENAL Hx Chronic Kidney Disease: No - ENDOCRINE/METABOLIC Hx Endocrine Disorders: No - HEMATOLOGICAL/ONCOLOGICAL Hx Blood Disorders: No - INTEGUMENTARY Hx Dermatological Problems: No - MUSCULOSKELETAL/RHEUMATOLOGICAL Hx Falls: No Hx Fractures: Yes (FINGERS) Hx Osteoporosis: Yes - GASTROINTESTINAL Hx Gall Bladder Disease: Yes - GENITOURINARY/GYNECOLOGICAL Hx Genitourinary Disorders: No - PSYCHIATRIC Hx Anxiety: Yes Hx Depression: Yes Hx Substance Use: No (denies) - SURGICAL HISTORY Hx Cholecystectomy: Yes - ANESTHESIA Hx Anesthesia: Yes Hx Anesthesia Reactions: No Hx Malignant Hyperthermia: No Meds Allergies/Adverse Reactions: Allergies Allergy/AdvReac Type Severity Reaction Status Date / Time No Known Allergies Allergy Verified 04/07/17 14:58 - Medications Medications: Current Medications Acetaminophen (Tylenol 325mg Tab) 650 mg PO Q6 PRN PRN Reason: Pain, Mild (1-3) Last Admin: 01/24/18 04:45 Dose: 650 mg Alprazolam (Xanax) 0.25 mg PO DAILY PRN PRN Reason: Anxiety Stop: 02/01/18 16:05 Last Admin: 01/25/18 16:42 Dose: 0.25 mg Hydrochlorothiazide (Microzide) 12.5 mg PO DAILY [facility] Last Admin: 01/25/18 10:22 Dose: 12.5 mg Potassium Chloride (Potassium Chloride 20 Meq/100 Ml) 20 meq in 100 mls @ 50 mls/hr IVPB ONCE ONE Stop: 01/26/18 10:43 Last Admin: 01/26/18 09:20 Dose: 50 mls/hr Sodium Chloride (Sodium Chloride 0.9%) 1,000 mls @ 100 mls/hr IV .Q10H [facility] Ibuprofen (Motrin Tab) 600 mg PO Q8 PRN PRN Reason: Pain, moderate (4-7) Last Admin: 01/25/18 10:23 Dose: 600 mg Lamotrigine (Lamictal) 200 mg PO BID [facility] Last Admin: 01/25/18 17:40 Dose: 200 mg Levetiracetam (Keppra) 750 mg PO BID [facility] Last Admin: 01/25/18 17:40 Dose: 750 mg Lisinopril (Zestril) 20 mg PO DAILY [facility] Last Admin: 01/25/18 10:22 Dose: 20 mg Loratadine (Claritin) 10 mg PO DAILY [facility] Last Admin: 01/25/18 10:22 Dose: 10 mg Metoprolol Succinate (Toprol Xl) 25 mg PO DAILY [facility] Last Admin: 01/25/18 10:21 Dose: 25 mg Pantoprazole Sodium (Protonix Ec Tab) 40 mg PO DAILY [facility] Last Admin: 01/25/18 10:22 Dose: 40 mg Physical Exam - Constitutional Appears: Non-toxic, No Acute Distress - Head Exam Head Exam: ATRAUMATIC, NORMAL INSPECTION, NORMOCEPHALIC - Eye Exam Eye Exam: EOMI, Normal appearance, PERRL - ENT Exam ENT Exam: Mucous Membranes Moist, Normal Oropharynx - Neck Exam Neck exam: Positive for: Normal Inspection - Respiratory Exam Respiratory Exam: absent: Rhonchi, Wheezes - Cardiovascular Exam Cardiovascular Exam: REGULAR RHYTHM, +S1, +S2. absent: Gallop, Systolic Murmur Additional comments: pedeal pulses are diminished - GI/Abdominal Exam GI & Abdominal Exam: Normal Bowel Sounds. absent: Soft, Tenderness - Extremities Exam Extremities exam: Positive for: normal inspection. Negative for: calf tenderness - Neurological Exam Neurological exam: Alert, Oriented x3 - Psychiatric Exam Psychiatric exam: Normal Affect, Normal Mood - Skin Skin Exam: Normal Color Results - Vital Signs Recent Vital Signs: Last Vital Signs Temp 99.0 F 01/26/18 07:00 Pulse 59 L 10/29/18 07:00 Resp 18 01/26/18 07:00 BP 100/69 01/26/18 07:00 Pulse Ox 96 01/26/18 07:00 - Labs Result Diagrams: 01/26/18 07:51 01/26/18 07:51 Labs: Laboratory Results - last 24 hr 01/26/18 01/26/18 01/26/18 07:51 07:51 07:51 WBC 11.3 H RBC 4.22 Hgb 14.1 Hct 40.3 MCV 95.5 MCH 33.4 H MCHC 34.9 RDW 13.3 Plt Count 298 MPV 7.9 Neut % (Auto) 69.7 Lymph % (Auto) 19.7 L Lyon % (Auto) 7.0 Eos % (Auto) 2.3 Baso % (Auto) 1.3 Neut # (Auto) 7.9 H Lymph # (Auto) 2.2 Lyon # (Auto) 0.8 Eos # (Auto) 0.3 Baso # (Auto) 0.1 PT 13.0 H INR 1.2 APTT 34 Sodium 140 Potassium 3.5 L Chloride 101 Carbon Dioxide 26 Anion Gap 17 BUN 18 H Creatinine 1.3 H Est GFR ( Amer) 53 Est GFR (Non-Af Amer) 44 Random Glucose 107 H Calcium 9.3 Total Bilirubin 1.0 AST 15 ALT 18 Alkaline Phosphatase 93 Total Protein 7.6 Albumin 4.4 Globulin 3.2 Albumin/Globulin Ratio 1.4 - EKG Data EKG Interpreted by: Myself Assessment & Plan - Assessment and Plan (Free Text) Assessment: 47 y/o woman preop for non-cardiac, non-vascular surgery T12-L2 fusion Known HTN controlled, on statin therapy + Smoker, probable COPD and known SILVIO She likely has history of ASCVD given risk factors but is ASX for ischemia or acute cardiac sx's EKG is NSR with normal variant TWI anterior clinically no volume overload Normal H/H, Normal range creat BP is controlled Based on the absence of angina, CHF sx's and normal telemetry thus far: patient is acceptable risk to proceed with surgery without additional teting. - Monitor BP and heart rate. - DVT prophylaxis if warranted Cont metoprolol, lisinopril, HCTZ and statin therapy for CAD risk factors.
[2018-01-26] MEDS: Metoprolol Succinate 25 mg XL Tab PO SCH (10:17)
[2018-01-26] MEDS: Pantoprazole 40 mg EC Tab PO SCH (10:17)
[2018-01-26] MEDS: Sodium Chloride 0.9% 1,000 ML IV SCH ×2 (10:22→19:46)
[2018-01-26] MEDS ORDERED: Bupivacaine Liposomal Inj 20 ml INFIL ONE (10:56)
[2018-01-26] MEDS ORDERED: Bacitracin 50,000 UNIT in Sodium Chloride 0.9% Irrig 1,000 ML IR SCH (11:00)
[2018-01-26] MEDS ORDERED: ceFAZolin IV 1 gm in Dextrose 2 GM/100 ML BAG IVPB ONE (11:07)
[2018-01-26] MEDS ORDERED: Absorbable Gelatin Sponge Size 100 ONE (11:07)
[2018-01-26] MEDS ORDERED: Lidocaine 2% w Epi 1:100,000 Inj IJ ONE (11:07)
[2018-01-26] MEDS ORDERED: Thrombin Topical 20,000 Intl Units Spray Kit TOP ONE (11:07)
[2018-01-26] MEDS ORDERED: Midazolam 2 MG/2 ML VIAL ONE (11:24)
[2018-01-26] MEDS ORDERED: Propofol 10 mg/ml Inj (20 ML) ONE (11:24)
[2018-01-26] MEDS ORDERED: Lidocaine/Epinephrine 1% 1:100000 10 ML IJ ONE (11:30)
[2018-01-26] MEDS ORDERED: Bupivacaine 0.25% 20 ML INJ IJ ONE (11:32)
[2018-01-26] MEDS ORDERED: Propofol 10 mg/ml 0 MG/0 ML VIAL ONE (11:36)
--- NOTE | 2018-01-26 12:49 | CARD ---
APPROVED REPORT Date of service: 01/25/2018 EKG Measurement Heart [id number] <Conclusion> Normal sinus rhythm Normal ECG
[2018-01-26] MEDS ORDERED: Rocuronium 10 mg/ml (5 ml) ONE (13:31)
[2018-01-26] MEDS ORDERED: Propofol 10 mg/ml 1,000 MG/100 ML VIAL ONE (14:10)
[2018-01-26] MEDS ORDERED: Vancomycin 1 g Inj ONE (14:29)
[2018-01-26] MEDS ORDERED: Vasopressin 20 Units/ml Inj ONE (14:30)
[2018-01-26] MEDS ORDERED: ePHEDrine 50 mg/ml Inj ONE (14:30)
[2018-01-26] MEDS ORDERED: Neostigmine Methylsulfate 3mg/3ml Syringe IV ONE (14:30)
[2018-01-26] MEDS ORDERED: Phenylephrine 10 mg/ml Inj ONE (14:30)
[2018-01-26] MEDS ORDERED: Ergocalciferol 50,000 Intl Units Cap PO SCH ×2 (15:00→20:00)
[2018-01-26] MEDS ORDERED: HYDROmorphone 0.5 mg/0.5 ml ISec IVP PRN (15:05)
[2018-01-26] MEDS ORDERED: Lactated Ringer's 1,000 ML IV ONE (15:13)
--- NOTE | 2018-01-26 15:27 | RAD ---
Date of service: 01/26/2018 PROCEDURE: Intraoperative Fluoroscopy. HISTORY: BURST Fracture L1 FINDINGS: Fluoroscopic assistance was provided for posterior spinal fusion. Please refer to the operative report from MARCOS Jacobson.
[2018-01-26] MEDS: Lactated Ringer's 1,000 ML IV SCH (16:03)
[2018-01-26] MEDS: Potassium Ch 20mEq in D5-1/2NS 1,000 ML IV SCH (17:00)
--- NOTE | 2018-01-26 17:55 | CP.PCM.PN ---
Subjective - Date & Time of Evaluation Date of Evaluation: 01/26/18 Time of Evaluation: 10:15 - Subjective Subjective: clinically same Objective - Vital Signs/Intake and Output Vital Signs (last 24 hours): Temp Pulse Resp BP Pulse Ox 97.4 F L 75 20 98/66 L 99 01/26/18 17:43 01/26/18 17:43 01/26/18 17:43 01/26/18 17:43 01/26/18 17:43 Intake and Output: 01/26/18 01/26/18 06:59 18:59 Intake Total 2100 Output Total 150 Balance 1950 - Medications Medications: Current Medications Acetaminophen (Tylenol 325mg Tab) 650 mg PO Q6 PRN PRN Reason: Pain, Mild (1-3) Last Admin: 01/24/18 04:45 Dose: 650 mg Alprazolam (Xanax) 0.25 mg PO DAILY PRN PRN Reason: Anxiety Stop: 02/01/18 16:05 Last Admin: 01/25/18 16:42 Dose: 0.25 mg Bacitracin (Bacitracin) 1 ea TOP DAILY [facility] Docusate Sodium (Colace) 100 mg PO BID [facility] Ergocalciferol (Drisdol 50,000 Intl Units Cap) 1 cap PO Q7D [facility] Hydrochlorothiazide (Microzide) 12.5 mg PO DAILY [facility] Last Admin: 01/26/18 10:17 Dose: 12.5 mg Hydromorphone/Sodium Chloride (Dilaudid Medical Specialist) 6 mg IV Q4H PRN; Protocol PRN Reason: Pain, moderate (4-7) Sodium Chloride (Sodium Chloride 0.9%) 1,000 mls @ 100 mls/hr IV .Q10H [facility] Last Admin: 01/26/18 10:22 Dose: 100 mls/hr Lactated Ringer's (Lactated Ringer's) 1,000 mls @ 100 mls/hr IV .Q10H [facility] Potassium Chloride/Dextrose/Sod Cl (Potassium Chl 20 Meq In D5-1/2ns) 1,000 mls @ 125 mls/hr IV .Q8H [facility] Last Admin: 01/26/18 17:00 Dose: 0 mls Ibuprofen (Motrin Tab) 600 mg PO Q8 PRN PRN Reason: Pain, moderate (4-7) Last Admin: 01/25/18 10:23 Dose: 600 mg Lamotrigine (Lamictal) 200 mg PO BID [facility] Last Admin: 01/26/18 10:17 Dose: 200 mg Levetiracetam (Keppra) 750 mg PO BID [facility] Last Admin: 01/26/18 10:17 Dose: 750 mg Lisinopril (Zestril) 20 mg PO DAILY [facility] Last Admin: 01/26/18 10:17 Dose: 20 mg Loratadine (Claritin) 10 mg PO DAILY [facility] Last Admin: 01/26/18 10:17 Dose: 10 mg Metoprolol Succinate (Toprol Xl) 25 mg PO DAILY [facility] Last Admin: 01/26/18 10:17 Dose: 25 mg Pantoprazole Sodium (Protonix Ec Tab) 40 mg PO DAILY [facility] Last Admin: 01/26/18 10:17 Dose: 40 mg - Labs Labs: 01/26/18 07:51 01/26/18 07:51 PT 13.0 SECONDS (9.7-12.2) H 01/26/18 07:51 INR 1.2 01/26/18 07:51 APTT 34 SECONDS (21-34) 01/26/18 07:51 - Constitutional Appears: Well - Head Exam Head Exam: ATRAUMATIC, NORMAL INSPECTION, NORMOCEPHALIC - Eye Exam Eye Exam: EOMI, Normal appearance, PERRL Pupil Exam: NORMAL ACCOMODATION, PERRL - ENT Exam ENT Exam: Mucous Membranes Moist, Normal Exam - Neck Exam Neck Exam: Full ROM, Normal Inspection. absent: Lymphadenopathy - Respiratory Exam Respiratory Exam: Decreased Breath Sounds - Cardiovascular Exam Cardiovascular Exam: REGULAR RHYTHM, +S1, +S2 - GI/Abdominal Exam GI & Abdominal Exam: Soft, Diminished Bowel Sounds - Rectal Exam Rectal Exam: Deferred
--- NOTE | 2018-01-26 18:06 | CARD ---
APPROVED REPORT Date of service: 01/22/2018 EKG Measurement Heart [id number] <Conclusion> Sinus tachycardia Nonspecific ST abnormality Abnormal ECG
--- NOTE | 2018-01-26 23:26 | CP.PCM.PCO ---
Addendum entered and electronically signed by Aquilino Pena 01/27/18 06:46: House doctor note: Paged for hypotension: Patient was POD # 0 for lumbar surgery. Pt BP per nursing staff was 80s/50s. Patient was asymptomatic. Repeat vitals was 90s/60s. Per chart review, pt BP runs in 90s. Because patient was asymptomatic, and BP in regular range, no medical management was warranted at this time. Paged again for hypotension later in the night. BP now was in 60s to 70s. Patient remained asymptomatic. Rechecked BP, it was still in 60s. 1X bolus of NS ordered. Checked back, no bleeding, no hematoma seen around surgical site. Repeat vitals following bolus was in 90s. Patient remained asymptomatic. No further management at this time. Original Note:
[2018-01-27] MEDS ORDERED: Sodium Chloride 0.9% 1,000 ML IV ONE ×2 (00:15→07:31)
[2018-01-27] MEDS: Potassium Ch 20mEq in D5-1/2NS 1,000 ML IV SCH (01:29)
[2018-01-27] MEDS: Lactated Ringer's 1,000 ML IV SCH (02:19)
[2018-01-27] MEDS: Potassium Chloride 20 MEQ in Dextrose 5%/0.9% NS 1,000 ML IV SCH ×4 (07:02→21:58)
--- NOTE | 2018-01-27 07:37 | CP.PCM.PN ---
Subjective - Date & Time of Evaluation Date of Evaluation: 01/27/18 Time of Evaluation: 07:35 - Subjective Subjective: Patient seen and examined at bedside. She is POD #1 s/p fusion of T11-L3. Rapid response called this morning for low BP and was given a liter bolus. Overnight patient was also hypotensive but asymptomatic. She was given a 1 L Bolus at that time as well. At this time she denies any fever, chills, SOB, chest pain, palpitations, abdominal pain, changes in bowel habits, or urinary symptoms. She does complain of lower back pain. Objective - Vital Signs/Intake and Output Vital Signs (last 24 hours): Temp Pulse Resp BP Pulse Ox 99.3 F 93 H 20 94/63 L 95 01/27/18 04:00 01/27/18 04:00 01/27/18 04:00 01/27/18 04:00 01/27/18 04:00 Intake and Output: 01/27/18 01/27/18 06:59 18:59 Intake Total 2900 Output Total 750 Balance 2150 - Medications Medications: Current Medications Acetaminophen (Tylenol 325mg Tab) 650 mg PO Q6 PRN PRN Reason: Pain, Mild (1-3) Last Admin: 01/27/18 04:22 Dose: 650 mg Alprazolam (Xanax) 0.25 mg PO DAILY PRN PRN Reason: Anxiety Stop: 02/01/18 16:05 Last Admin: 01/25/18 16:42 Dose: 0.25 mg Bacitracin (Bacitracin) 1 ea TOP DAILY [facility] Docusate Sodium (Colace) 100 mg PO BID [facility] Last Admin: 01/26/18 19:00 Dose: 100 mg Ergocalciferol (Drisdol 50,000 Intl Units Cap) 1 cap PO Q7D [facility] Last Admin: 01/26/18 19:04 Dose: 1 cap Hydromorphone/Sodium Chloride (Dilaudid Oil Burner Mechanic) 6 mg IV Q4H PRN; Protocol PRN Reason: Pain, moderate (4-7) Last Admin: 01/26/18 18:37 Dose: 6 mg Potassium Chloride 20 meq/ (Dextrose/Sodium Chloride) 1,010 mls @ 125 mls/hr IV .Q8H5M [facility] Last Admin: 01/27/18 07:02 Dose: 125 mls/hr Sodium Chloride (Sodium Chloride 0.9%) 1,000 mls @ 1,000 mls/hr IV .Q1H ONE Stop: 01/27/18 08:30 Lamotrigine (Lamictal) 200 mg PO BID [facility] Last Admin: 01/26/18 19:00 Dose: 200 mg Levetiracetam (Keppra) 750 mg PO BID [facility] Last Admin: 01/26/18 19:00 Dose: 750 mg Lidocaine (Lidoderm) 1 ea TD DAILY PRN PRN Reason: Pain, severe (8-10) Loratadine (Claritin) 10 mg PO DAILY [facility] Last Admin: 01/26/18 10:17 Dose: 10 mg Pantoprazole Sodium (Protonix Ec Tab) 40 mg PO DAILY [facility] Last Admin: 01/26/18 10:17 Dose: 40 mg Potassium Chloride (Klor-Con 10) 10 meq PO BRK [facility] - Labs Labs: 01/26/18 07:51 01/26/18 07:51 PT 13.0 SECONDS (9.7-12.2) H 01/26/18 07:51 INR 1.2 01/26/18 07:51 APTT 34 SECONDS (21-34) 01/26/18 07:51 - Constitutional Appears: Non-toxic, No Acute Distress - Head Exam Head Exam: ATRAUMATIC, NORMAL INSPECTION, NORMOCEPHALIC - Eye Exam Eye Exam: EOMI, Normal appearance. absent: Scleral icterus - ENT Exam ENT Exam: Mucous Membranes Dry - Respiratory Exam Respiratory Exam: Clear to Ausculation Bilateral, NORMAL BREATHING PATTERN. absent: Accessory Muscle Use, Rales, Rhonchi, Wheezes, Stridor - Cardiovascular Exam Cardiovascular Exam: RRR, +S1, +S2 - GI/Abdominal Exam GI & Abdominal Exam: Soft, Normal Bowel Sounds. absent: Tenderness - Extremities Exam Extremities Exam: Normal Capillary Refill. absent: Pedal Edema - Back Exam Additional comments: Dressing on Thoracic and lumbar spine (Clean, dry, and intact) - Neurological Exam Neurological Exam: Alert, Awake, Oriented x3 - Psychiatric Exam Psychiatric exam: Normal Affect, Normal Mood - Skin Skin Exam: Dry, Intact, Rash, Warm Additional comments: Diffuse erythematous rash on back. Non-pruritic. Assessment and Plan - Assessment and Plan (Free Text) Assessment: 47 year old female with a PMHx of seizure disorder, hyperlipidemia, HTN, and tobacco abuse admitted for evaluation and treatment of lumbar compression fracture likely 2/2 to fall 2/2 to seizure. POD #1 of spinal fusion of T11-L3. Plan: Seizure Neurology Consulted (Dr. Alanis), Recs Appreciated Seizure precautions. Refrain from meds that will lower seizure threshold including Tramadol Head CT (Admission): No acute intracranial pathology identified. Under aeration of the left mastoid air cells; correlate for history of mastoiditis. EEG (01/23): Follow UP Meds: Keppra 750 BID [facility] <---Inc. during this visit Lamictal 200mg PO BID [facility]. Lumbar Compression Fracture: POD #1 of Spinal FUsion of T11-L3 Neurosurgery Consulted (Dr. Luis Salazar), Recs appreciated Cardiology Consulted for Cardiac Clearance (Dr. Garcia) CT Abd/Pelvis (Admission): 1.) No acute abdominal or pelvic abnormality. 2.) 3.8 x 6.3 cm cystic mass in the left adnexa, the differential considerations include simple cyst, cystadenoma and cystadenocarcinoma. Clinical follow-up is advised and given the size of the cystic mass gynecologic consult is recommended. 3.) Age indeterminate superior endplate compression fracture in the L1 vertebral body with approximately 50% loss of central vertebral height without retropulsion, new since February 2014. With the stated history of trauma, the possibility of this being an acute fracture is likely however MRI without intravenous contrast may be performed for definitive evaluation of the age of the fracture. Lumbar Spine MRI (01/23/18): 1. Acute superior endplate compression fracture in the L1 vertebral body with approximately 50% loss of central vertebral height and mild posterosuperior retropulsion of fracture fragment which indents the ventral thecal sac without cord compression or central spinal canal stenosis. 2. Mild multilevel degenerative disc disease, worse at L4-5 with a diffuse posterior disc bulge and superimposed left foraminal and far lateral annular tear and disc protrusions which abut the exiting left L4 nerve root with resultant mild spinal canal stenosis, mild right and moderate left neural foraminal narrowing.\ Thoracis Spine MRI (01/23/18): 1. No acute fracture in the thoracic spine. 2. Mild multilevel degenerative disc disease with multilevel Schmorl's nodes, the largest at the superior endplate of T12 vertebral body with mild surrounding vasogenic edema. No spinal canal stenosis or neural foraminal narrowing. PT/OT Meds: Tylenol PRN Ibuprofen Q8H PRN NS @ 100mls/hr Lidoderm Patch. Hypotenion (Acute) Likely 2/2 to Anaesthesia TRACTOR SWEEPER OPERATOR Called in AM s/P 2 1 Liter Boluses. Monitor H/H at 12:00 Hold all antihypertensives Hold narcotic pain medications. GABRIEL Cr. 1.3 likely due to low BP Continue D5 in 1/2 NS @ 125mls/hr Refrain from nephrotoxic agents. Elevated LFT's Likely 2/2 to shock liver Monitor Consider Abdominal US Consider GGT Consider Hepatitis Panel Cystic Mass of Left Adnexa Incidental Finding on CT CT Abd/Pelvis (Admission): 1.) No acute abdominal or pelvic abnormality. 2.) 3.8 x 6.3 cm cystic mass in the left adnexa, the differential considerations include simple cyst, cystadenoma and cystadenocarcinoma. Clinical follow-up is advised and given the size of the cystic mass gynecologic consult is recommended. Will Order Pelvic US once patient is in less pain and more stable. Will Consider inpatient vs outpatient Ob-forming process line worker Referral post Pelvic US results. Hypertension: Meds: HCTZ 12.5mg Daily (HELD) Lisinopril 20mg PO Daily (HELD) Metoprolol Succinate 25mg PO Daily (HELD) Hypokalemia Meds: 20 Meq in FLuids. Anxiety Meds: Xanax 0.25mg PRN (Held) Proph Liquid Diet per Surgery. Lovenox (Held for surgery) Protonix. Patient to be discussed with Dr. Nesha Lyons, PGY-2
--- NOTE | 2018-01-27 07:37 | PCM.RRT ---
<JinroberMyesha - Last Filed: 01/27/18 07:56> EXTRACTION MACHINE OPERATOR Nurses Assessment - Situation Date: 01/27/18 Time EXTRACTION MACHINE OPERATOR was called: 07:26 EXTRACTION MACHINE OPERATOR Responder Arrival Time:: 07:26 EXTRACTION MACHINE OPERATOR Location:: Med/Surg Room Number: 656A EXTRACTION MACHINE OPERATOR Reason for Call: Hypotension EXTRACTION MACHINE OPERATOR Called By: RN - IV IV Inserted during EXTRACTION MACHINE OPERATOR?: No - Respiratory EXTRACTION MACHINE OPERATOR Delivery Method: Room Air Received Nebulizer Treatments: No Was the Patient Ventilated with Bag/Mask 100% O2?: No Secretions Suctioned?: No Was the Patient Intubated?: No Was the Patient Placed on a Ventilator?: No - Diagnostic Test Ordered EKG: No Chest X-Ray: Yes CT Scan: No - Stat Labs Ordered EXTRACTION MACHINE OPERATOR Stat Labs Ordered: CBC, PT/PTT, BLOOD C&S X2 (Blood Culture X1) CPR started during EXTRACTION MACHINE OPERATOR?: No - Vital Signs Vital Signs: BP - 71/50 HR - 97 RR - 18 02 - 97% Blood Sugar 101 - Time EXTRACTION MACHINE OPERATOR Ended Time EXTRACTION MACHINE OPERATOR Ended: 07:34 - Vital Signs at end of EXTRACTION MACHINE OPERATOR Vital Signs at end of EXTRACTION MACHINE OPERATOR: BP - 88/54 HR - 98 02 - 97 RA RR - 18 - Recommendations 5) EXTRACTION MACHINE OPERATOR Level of Care Recommendations: Remain in current setting I.Reason for EXTRACTION MACHINE OPERATOR - A) Acute Change in Patient: (Select all that apply): Acute change in SBP below (SBP below 90) Subjective: EXTRACTION MACHINE OPERATOR to called 7:26 by RN for hypotension. Patient is asymptomatic and is saturating at 97% 02. She is s/p fusion of T11-L3 spine. She only complains of back pain. CBC, CMP, PT/PTT, CXR and blood cultures ordered. 1L fluid bolus given and patient placed in trendelenberg position. She denies any chest pain, palpitations, SOB, or fever. - Neurological Status (Select all that apply): Alert, Responsive, Oriented, Verbal, Follows Commands - Respiratory Oxygen Delivery Method: Room Air - Constitutional Appears: Well, Non-toxic, No Acute Distress - Head Head Exam: ATRAUMATIC, NORMAL INSPECTION, NORMOCEPHALIC - Eyes Eye Exam: EOMI, Normal appearance - Respiratory Exam Respiratory Exam: Clear to Ausculation Bilateral, NORMAL BREATHING PATTERN. absent: Accessory Muscle Use - Cardiovascular Exam Cardiovascular Exam: Tachycardia, REGULAR RHYTHM, +S1, +S2 - GI/Abdominal Exam GI & Abdominal Exam: Soft. absent: Tenderness - Neurological Exam Neurological Exam: Alert, Awake, Oriented x3. absent: Motor Sensory Deficit - Extremities Exam Extremities Exam: Normal Capillary Refill. absent: Pedal Edema Plan - Assessment of Findings&Treatment Plan A: Hypotension P: -CBC, CMP, PT/PTT, -CXR -Trendelenberg -Blood Cultures -Vitals Q30Min -Antihypertensives and Xanax held -1 Liter fluid Bolus. <Alexsander Garcia H - Last Filed: 01/27/18 08:21> Attending/Attestation - Attestation I have personally seen and examined this patient.: Yes I have fully participated in the care of the patient.: Yes I have reviewed all pertinent clinical information, including history, physical exam and plan: Yes Notes (Text): 01/27/18 08:17 Medical Hospitalist: An EXTRACTION MACHINE OPERATOR was called due to low blood pressure check. Agree with the above note by the resident The patient was not in any acute distress when we came to the room, she was AAO x 3 and denied fever and denied chills, also denied feeling dizzy and denied weakness. Patient was able to move toes bilaterally, move also legs as well as raise both legs bilaterally. Her mouth appeared very dry, toung dry. She does report ongoing back pain following procedure. Her last diluadid use was yesterday. From what I understand she had procedure done less than 15 hrs ago. IV fluid bolus given, lab work drawn. For now held the patient's BP medication as well as the diluadid ggt. Check a portable later today as she is getting a lot of IV fluid. thank you Alexsander Garcia
[2018-01-27 08:10] LABS: BASO % 0.4 % (0.0-2.0); EOS # 0.1 K/uL (0.0-0.7); EOS % 1.4 % (0.0-4.0); LYMPH # 1.3 K/uL (1.0-4.3); LYMPH % 13.5 % (20.0-40.0); MEAN CELL VOLUME 96.1 fL (81.0-99.0); MEAN CORPUSCULAR HEMOGLOBIN 34.2 pg (27.0-31.0); MEAN CORPUSCULAR HGB CONC 35.6 g/dL (33.0-37.0); MEAN PLATELET VOLUME 8.4 fL (7.2-11.7); MONO # 0.8 K/uL (0.0-0.8); MONO % 8.7 % (0.0-10.0); NEUT # 7.3 K/uL (1.8-7.0); RBC 3.03 Mil/uL (3.80-5.20); RED CELL DISTRIBUTION WIDTH 13.3 % (11.5-14.5); WHITE BLOOD COUNT 9.6 K/uL (4.8-10.8)
[2018-01-27 08:12] LABS: HEMOGLOBIN 10.4 g/dL (11.0-16.0)
[2018-01-27] MEDS: Potassium Chloride 10 mEq ER Tab PO SCH (08:13)
[2018-01-27 08:19] LABS: INR 1.2; PROTHROMBIN TIME 13.3 SECONDS (9.7-12.2)
[2018-01-27] MEDS: Lidocaine 5% Patch TD PRN (08:24)
[2018-01-27 08:55] LABS: ALB/GLOB RATIO 1.2 (1.0-2.1); CALCIUM 7.8 mg/dl (8.6-10.4)
[2018-01-27] MEDS: Pantoprazole 40 mg EC Tab PO SCH (09:30)
--- NOTE | 2018-01-27 11:30 | RAD ---
Date of service: 01/27/2018 HISTORY: SOB COMPARISON: 01/22/2018 FINDINGS: LUNGS: No active pulmonary disease. PLEURA: No significant pleural effusion identified, no pneumothorax apparent. CARDIOVASCULAR: No aortic atherosclerotic calcification present. Normal cardiac size. No pulmonary vascular congestion. OSSEOUS STRUCTURES: Interval thoraco lumbar spinal hardware present. VISUALIZED UPPER ABDOMEN: Normal. OTHER FINDINGS: None. IMPRESSION: Interval thoraco lumbar spinal surgery No interval acute cardiopulmonary pathology noted.
--- NOTE | 2018-01-27 15:58 | CP.PCM.PN ---
Subjective - Date & Time of Evaluation Date of Evaluation: 01/27/18 Time of Evaluation: 15:51 - Subjective Subjective: SPINE - POD #1 Pt has been hypotensive intra- and post-op. Hct decreased to 10 (14 pre-op) but received 2000cc of fluid during surgery and only lost 100cc so may be dilutional in part. Complains of some back pain but off all narcotics since last night. Voiding via cho. ? flatus yet. (pt unsure). Temp 99. BP running 90/50. moves all extremities. Neuro grossly intact. Abd soft and non-tender. Plan: Will discuss if possible to give occasional Percocet for pain. Pt asymptomatic with low BP. Hopefully can ambulate tomorrow and transfer to rehab if medically stable. Advance diet as tolerated. Objective - Vital Signs/Intake and Output Vital Signs (last 24 hours): Temp Pulse Resp BP Pulse Ox 99.2 F 101 H 20 90/50 L 96 01/27/18 15:41 01/27/18 15:41 01/27/18 15:41 01/27/18 15:41 01/27/18 15:41 Intake and Output: 01/27/18 01/27/18 06:59 18:59 Intake Total 2900 2125 Output Total 750 1500 Balance 2150 625 - Medications Medications: Current Medications Acetaminophen (Tylenol 325mg Tab) 650 mg PO Q6 PRN PRN Reason: Pain, Mild (1-3) Last Admin: 01/27/18 13:24 Dose: 650 mg Alprazolam (Xanax) 0.25 mg PO DAILY PRN PRN Reason: Anxiety Stop: 02/01/18 16:05 Last Admin: 01/25/18 16:42 Dose: 0.25 mg Bacitracin (Bacitracin) 1 ea TOP DAILY [facility] Docusate Sodium (Colace) 100 mg PO BID [facility] Last Admin: 01/27/18 09:30 Dose: 100 mg Ergocalciferol (Drisdol 50,000 Intl Units Cap) 1 cap PO Q7D [facility] Last Admin: 01/26/18 19:04 Dose: 1 cap Hydromorphone/Sodium Chloride (Dilaudid Epic Specialist) 6 mg IV Q4H PRN; Protocol PRN Reason: Pain, moderate (4-7) Last Admin: 01/26/18 18:37 Dose: 6 mg Potassium Chloride 20 meq/ (Dextrose/Sodium Chloride) 1,010 mls @ 125 mls/hr IV .Q8H5M [facility] Last Admin: 01/27/18 14:34 Dose: Not Given Lamotrigine (Lamictal) 200 mg PO BID [facility] Last Admin: 01/27/18 09:30 Dose: 200 mg Levetiracetam (Keppra) 750 mg PO BID [facility] Last Admin: 01/27/18 09:29 Dose: 750 mg Lidocaine (Lidoderm) 1 ea TD DAILY PRN PRN Reason: Pain, severe (8-10) Last Admin: 01/27/18 08:24 Dose: 1 ea Loratadine (Claritin) 10 mg PO DAILY [facility] Last Admin: 01/27/18 09:30 Dose: 10 mg Pantoprazole Sodium (Protonix Ec Tab) 40 mg PO DAILY [facility] Last Admin: 01/27/18 09:30 Dose: 40 mg Potassium Chloride (Klor-Con 10) 10 meq PO BRK [facility] Last Admin: 01/27/18 08:13 Dose: 10 meq - Labs Labs: 01/27/18 08:05 01/27/18 08:05 PT 13.3 SECONDS (9.7-12.2) H 01/27/18 08:05 INR 1.2 01/27/18 08:05 APTT 28 SECONDS (21-34) D 01/27/18 08:05
[2018-01-27 16:53] LABS: HEMOGLOBIN 10.2 g/dL (11.0-16.0)
--- NOTE | 2018-01-27 20:14 | CP.PCM.PN ---
Subjective - Date & Time of Evaluation Date of Evaluation: 01/27/18 Time of Evaluation: 09:00 - Subjective Subjective: clinically same Objective - Vital Signs/Intake and Output Vital Signs (last 24 hours): Temp Pulse Resp BP Pulse Ox 99.2 F 103 H 20 87/52 L 96 01/27/18 15:41 01/27/18 19:23 01/27/18 15:41 01/27/18 19:23 01/27/18 15:41 Intake and Output: 01/27/18 01/28/18 18:59 06:59 Intake Total 2125 Output Total 1500 Balance 625 - Medications Medications: Current Medications Acetaminophen (Tylenol 325mg Tab) 650 mg PO Q6 PRN PRN Reason: Pain, Mild (1-3) Last Admin: 01/27/18 19:11 Dose: 650 mg Alprazolam (Xanax) 0.25 mg PO DAILY PRN PRN Reason: Anxiety Stop: 02/01/18 16:05 Last Admin: 01/25/18 16:42 Dose: 0.25 mg Bacitracin (Bacitracin) 1 ea TOP DAILY [facility] Docusate Sodium (Colace) 100 mg PO BID [facility] Last Admin: 01/27/18 17:39 Dose: 100 mg Ergocalciferol (Drisdol 50,000 Intl Units Cap) 1 cap PO Q7D [facility] Last Admin: 01/26/18 19:04 Dose: 1 cap Hydromorphone/Sodium Chloride (Dilaudid Cement Breaker) 6 mg IV Q4H PRN; Protocol PRN Reason: Pain, moderate (4-7) Last Admin: 01/26/18 18:37 Dose: 6 mg Potassium Chloride 20 meq/ (Dextrose/Sodium Chloride) 1,010 mls @ 125 mls/hr IV .Q8H5M [facility] Last Admin: 01/27/18 17:41 Dose: 125 mls/hr Lamotrigine (Lamictal) 200 mg PO BID [facility] Last Admin: 01/27/18 17:39 Dose: 200 mg Levetiracetam (Keppra) 750 mg PO BID [facility] Last Admin: 01/27/18 17:39 Dose: 750 mg Lidocaine (Lidoderm) 1 ea TD DAILY PRN PRN Reason: Pain, severe (8-10) Last Admin: 01/27/18 08:24 Dose: 1 ea Loratadine (Claritin) 10 mg PO DAILY [facility] Last Admin: 01/27/18 09:30 Dose: 10 mg Pantoprazole Sodium (Protonix Ec Tab) 40 mg PO DAILY [facility] Last Admin: 01/27/18 09:30 Dose: 40 mg Potassium Chloride (Klor-Con 10) 10 meq PO BRK [facility] Last Admin: 01/27/18 08:13 Dose: 10 meq - Labs Labs: 01/27/18 16:49 01/27/18 08:05 PT 13.3 SECONDS (9.7-12.2) H 01/27/18 08:05 INR 1.2 01/27/18 08:05 APTT 28 SECONDS (21-34) D 01/27/18 08:05
[2018-01-27] MEDS ORDERED: Oxycodone/Acetaminophen 5/325 mg Tab PO PRN (21:17)
[2018-01-27] MEDS: Oxycodone/Acetaminophen 5/325 mg Tab PO PRN (21:26)
[2018-01-28 01:35] VITALS: RESP 20
[2018-01-28] MEDS: Potassium Chloride 20 MEQ in Dextrose 5%/0.9% NS 1,000 ML IV SCH ×5 (03:20→23:10)
[2018-01-28] MEDS: Oxycodone/Acetaminophen 5/325 mg Tab PO PRN (07:55)
[2018-01-28] MEDS: Lidocaine 5% Patch TD PRN (07:55)
[2018-01-28] MEDS: Potassium Chloride 10 mEq ER Tab PO SCH (07:57)
[2018-01-28 08:29] LABS: BASO % 0.4 % (0.0-2.0); EOS # 0.2 K/uL (0.0-0.7); EOS % 1.2 % (0.0-4.0); HEMOGLOBIN 11.1 g/dL (11.0-16.0); LYMPH # 1.5 K/uL (1.0-4.3); LYMPH % 11.5 % (20.0-40.0); MEAN CELL VOLUME 97.8 fL (81.0-99.0); MEAN CORPUSCULAR HEMOGLOBIN 33.5 pg (27.0-31.0); MEAN CORPUSCULAR HGB CONC 34.2 g/dL (33.0-37.0); MEAN PLATELET VOLUME 8.9 fL (7.2-11.7); MONO # 1.1 K/uL (0.0-0.8); MONO % 8.2 % (0.0-10.0); NEUT # 10.1 K/uL (1.8-7.0); NEUT % 78.7 % (50.0-75.0); RBC 3.3 Mil/uL (3.80-5.20); RED CELL DISTRIBUTION WIDTH 13.3 % (11.5-14.5); WHITE BLOOD COUNT 12.8 K/uL (4.8-10.8)
--- NOTE | 2018-01-28 08:29 | CP.PCM.PN ---
Subjective - Date & Time of Evaluation Date of Evaluation: 01/28/18 Time of Evaluation: 08:28 - Subjective Subjective: has op site pain st in ble good no dec to pin wound clean increase pain meds adv activities neuosurgically/spine clear for transfer to rehab at any time Objective - Vital Signs/Intake and Output Vital Signs (last 24 hours): Temp Pulse Resp BP Pulse Ox 98.9 F 98 H 20 119/83 99 01/28/18 07:00 01/28/18 07:00 01/28/18 07:00 01/28/18 07:00 01/28/18 07:00 Intake and Output: 01/28/18 01/28/18 06:59 18:59 Intake Total 2360 Output Total 1550 Balance 810 - Medications Medications: Current Medications Acetaminophen (Tylenol 325mg Tab) 650 mg PO Q6 PRN PRN Reason: Pain, Mild (1-3) Last Admin: 01/27/18 19:11 Dose: 650 mg Alprazolam (Xanax) 0.25 mg PO DAILY PRN PRN Reason: Anxiety Stop: 02/01/18 16:05 Last Admin: 01/25/18 16:42 Dose: 0.25 mg Bacitracin (Bacitracin) 1 ea TOP DAILY [facility] Docusate Sodium (Colace) 100 mg PO BID [facility] Last Admin: 01/27/18 17:39 Dose: 100 mg Ergocalciferol (Drisdol 50,000 Intl Units Cap) 1 cap PO Q7D [facility] Last Admin: 01/26/18 19:04 Dose: 1 cap Hydromorphone/Sodium Chloride (Dilaudid Ludlow Machine Operator) 6 mg IV Q4H PRN; Protocol PRN Reason: Pain, moderate (4-7) Last Admin: 01/26/18 18:37 Dose: 6 mg Potassium Chloride 20 meq/ (Dextrose/Sodium Chloride) 1,010 mls @ 125 mls/hr IV .Q8H5M [facility] Last Admin: 01/28/18 07:50 Dose: Not Given Lamotrigine (Lamictal) 200 mg PO BID [facility] Last Admin: 01/27/18 17:39 Dose: 200 mg Levetiracetam (Keppra) 750 mg PO BID [facility] Last Admin: 01/27/18 17:39 Dose: 750 mg Lidocaine (Lidoderm) 1 ea TD DAILY PRN PRN Reason: Pain, severe (8-10) Last Admin: 01/28/18 07:55 Dose: 1 ea Loratadine (Claritin) 10 mg PO DAILY [facility] Last Admin: 01/27/18 09:30 Dose: 10 mg Oxycodone HCl (Oxycontin Extended Release Tab) 20 mg PO Q12 [facility] Oxycodone/Acetaminophen (Percocet 5/325 Mg Tab) 1 tab PO Q4H PRN PRN Reason: Pain, moderate (4-7) Stop: 01/30/18 21:18 Oxycodone/Acetaminophen (Percocet 5/325 Mg Tab) 2 tab PO Q4H PRN PRN Reason: Pain, severe (8-10) Stop: 01/30/18 21:19 Last Admin: 01/28/18 07:55 Dose: 2 tab Pantoprazole Sodium (Protonix Ec Tab) 40 mg PO DAILY [facility] Last Admin: 01/27/18 09:30 Dose: 40 mg Potassium Chloride (Klor-Con 10) 10 meq PO BRK [facility] Last Admin: 01/28/18 07:57 Dose: 10 meq - Labs Labs: 01/27/18 16:49 01/27/18 08:05 PT 13.3 SECONDS (9.7-12.2) H 01/27/18 08:05 INR 1.2 01/27/18 08:05 APTT 28 SECONDS (21-34) D 01/27/18 08:05
[2018-01-28 08:39] LABS: ALB/GLOB RATIO 1.2 (1.0-2.1); ALBUMIN 3.3 g/dL (3.5-5.0); ALT/SGPT 56 U/L (9-52); AST/SGOT 184 U/L (14-36); BLOOD UREA NITROGEN 7 mg/dL (7-17); CALCIUM 8.3 mg/dl (8.6-10.4); GFR NON-AFRICAN AMERICAN 53
--- NOTE | 2018-01-28 09:14 | CP.PCM.PN ---
Subjective - Date & Time of Evaluation Date of Evaluation: 01/28/18 Time of Evaluation: 09:18 - Subjective Subjective: Ambulating with PT No cardiac sx's No volume overload, fevers or chills Objective - Vital Signs/Intake and Output Vital Signs (last 24 hours): Temp Pulse Resp BP Pulse Ox 98.9 F 100 H 20 119/83 99 01/28/18 07:00 01/28/18 08:00 01/28/18 07:00 01/28/18 07:00 01/28/18 07:00 Intake and Output: 01/28/18 01/28/18 06:59 18:59 Intake Total 2360 Output Total 1550 Balance 810 - Medications Medications: Current Medications Acetaminophen (Tylenol 325mg Tab) 650 mg PO Q6 PRN PRN Reason: Pain, Mild (1-3) Last Admin: 01/27/18 19:11 Dose: 650 mg Alprazolam (Xanax) 0.25 mg PO DAILY PRN PRN Reason: Anxiety Stop: 02/01/18 16:05 Last Admin: 01/25/18 16:42 Dose: 0.25 mg Bacitracin (Bacitracin) 1 gm TOP DAILY [facility] Docusate Sodium (Colace) 100 mg PO BID [facility] Last Admin: 01/27/18 17:39 Dose: 100 mg Ergocalciferol (Drisdol 50,000 Intl Units Cap) 1 cap PO Q7D [facility] Last Admin: 01/26/18 19:04 Dose: 1 cap Hydromorphone/Sodium Chloride (Dilaudid Lever Operator) 6 mg IV Q4H PRN; Protocol PRN Reason: Pain, moderate (4-7) Last Admin: 01/26/18 18:37 Dose: 6 mg Potassium Chloride 20 meq/ (Dextrose/Sodium Chloride) 1,010 mls @ 125 mls/hr IV .Q8H5M [facility] Last Admin: 01/28/18 07:50 Dose: Not Given Lamotrigine (Lamictal) 200 mg PO BID [facility] Last Admin: 01/27/18 17:39 Dose: 200 mg Levetiracetam (Keppra) 750 mg PO BID [facility] Last Admin: 01/27/18 17:39 Dose: 750 mg Lidocaine (Lidoderm) 1 ea TD DAILY PRN PRN Reason: Pain, severe (8-10) Last Admin: 01/28/18 07:55 Dose: 1 ea Loratadine (Claritin) 10 mg PO DAILY [facility] Last Admin: 01/27/18 09:30 Dose: 10 mg Oxycodone HCl (Oxycontin Extended Release Tab) 20 mg PO Q12 [facility] Oxycodone/Acetaminophen (Percocet 5/325 Mg Tab) 1 tab PO Q4H PRN PRN Reason: Pain, moderate (4-7) Stop: 01/30/18 21:18 Oxycodone/Acetaminophen (Percocet 5/325 Mg Tab) 2 tab PO Q4H PRN PRN Reason: Pain, severe (8-10) Stop: 01/30/18 21:19 Last Admin: 01/28/18 07:55 Dose: 2 tab Pantoprazole Sodium (Protonix Ec Tab) 40 mg PO DAILY [facility] Last Admin: 01/27/18 09:30 Dose: 40 mg Potassium Chloride (Klor-Con 10) 10 meq PO BRK [facility] Last Admin: 01/28/18 07:57 Dose: 10 meq - Labs Labs: 01/28/18 08:18 01/28/18 08:18 PT 13.3 SECONDS (9.7-12.2) H 01/27/18 08:05 INR 1.2 01/27/18 08:05 APTT 28 SECONDS (21-34) D 01/27/18 08:05 - Constitutional Appears: Other (acceptable post op pain) - Head Exam Head Exam: ATRAUMATIC, NORMAL INSPECTION, NORMOCEPHALIC - Eye Exam Eye Exam: EOMI, Normal appearance - ENT Exam ENT Exam: Mucous Membranes Moist, Normal Oropharynx - Neck Exam Neck Exam: Full ROM, Normal Inspection. absent: Tenderness, Thyromegaly - Respiratory Exam Respiratory Exam: Clear to Ausculation Bilateral. absent: Rhonchi, Wheezes - Cardiovascular Exam Cardiovascular Exam: REGULAR RHYTHM, +S1, +S2. absent: Murmur - GI/Abdominal Exam GI & Abdominal Exam: Soft. absent: Tenderness, Organomegaly - Neurological Exam Neurological Exam: Alert, Awake, Oriented x3 - Skin Skin Exam: Normal Color, Warm Assessment and Plan - Assessment and Plan (Free Text) Assessment: 47 y/o woman preop for non-cardiac, non-vascular surgery now s/p spine surgery T12-L2 fusion HTN: BP is normal, noted low BP post op , improved with fluids, H/H is normal Lipids: resume statin, noted inc in AST/ALT: may be mild tranaminitis related to hypotension: monitor closely. + Smoker, probable COPD and known SILVIO She likely has history of ASCVD given risk factors but is ASX for ischemia or acute cardiac sx's -> Suggest ASA and statin when appropriate for nursing home control EKG is NSR with normal variant TWI anterior clinically no volume overload Normal H/H, Normal range creat BP is improved NO perioperative cardiac complications: Will sign off RX an RECC per primary team and neuro
[2018-01-28] MEDS ORDERED: oxyCODONE 10 mg Immediate Release Tab PO PRN (09:15)
[2018-01-28] MEDS: Pantoprazole 40 mg EC Tab PO SCH (09:41)
[2018-01-28] MEDS: Bacitracin Ointment 30 GM TUBE TOP SCH (09:41)
[2018-01-28] MEDS: oxyCODONE 20 mg ER Tab (oxyCONTIN) PO SCH ×2 (09:41→22:44)
[2018-01-28] MEDS ORDERED: Lidocaine 5% Patch TD PRN (09:45)
--- NOTE | 2018-01-28 10:07 | CP.PCM.DIS ---
Provider - Provider Date of Admission: 01/23/18 00:45 Attending physician: Kaitlin Grant MD Hospital Course - Lab Results Lab Results: Micro Results 01/27/18 07:45 Blood Blood Culture - Preliminary NO GROWTH AFTER 24 HOURS 01/27/18 08:00 Blood Blood Culture - Preliminary NO GROWTH AFTER 24 HOURS 01/22/18 06:00 Urine Urine Culture - Final No Growth (<1,000 CFU/ML) Most Recent Lab Values WBC 12.8 K/uL (4.8-10.8) H 01/28/18 08:18 RBC 3.30 Mil/uL (3.80-5.20) L 01/28/18 08:18 Hgb 11.1 g/dL (11.0-16.0) 01/28/18 08:18 Hct 32.3 % (34.0-47.0) L 01/28/18 08:18 MCV 97.8 fL (81.0-99.0) 01/28/18 08:18 MCH 33.5 pg (27.0-31.0) H 01/28/18 08:18 MCHC 34.2 g/dL (33.0-37.0) 01/28/18 08:18 RDW 13.3 % (11.5-14.5) 01/28/18 08:18 Plt Count 213 K/uL (130-400) 01/28/18 08:18 MPV 8.9 fL (7.2-11.7) 01/28/18 08:18 Neut % (Auto) 78.7 % (50.0-75.0) H 01/28/18 08:18 Lymph % (Auto) 11.5 % (20.0-40.0) L 01/28/18 08:18 Antelope % (Auto) 8.2 % (0.0-10.0) 01/28/18 08:18 Eos % (Auto) 1.2 % (0.0-4.0) 01/28/18 08:18 Baso % (Auto) 0.4 % (0.0-2.0) 01/28/18 08:18 Neut # (Auto) 10.1 K/uL (1.8-7.0) H 01/28/18 08:18 Lymph # (Auto) 1.5 K/uL (1.0-4.3) 01/28/18 08:18 Antelope # (Auto) 1.1 K/uL (0.0-0.8) H 01/28/18 08:18 Eos # (Auto) 0.2 K/uL (0.0-0.7) 01/28/18 08:18 Baso # (Auto) 0.0 K/uL (0.0-0.2) 01/28/18 08:18 Neutrophils % (Manual) 87 % (50-75) H 01/22/18 21:30 Band Neutrophils % 1 % (0-2) 01/22/18 21:30 Lymphocytes % (Manual) 11 % (20-40) L 01/22/18 21:30 Monocytes % (Manual) 1 % (0-10) 01/22/18 21:30 Platelet Estimate Normal (NORMAL) 01/22/18 21:30 Plt Clumps, EDTA Present 01/22/18 21:30 PT 13.3 SECONDS (9.7-12.2) H 01/27/18 08:05 INR 1.2 01/27/18 08:05 APTT 28 SECONDS (21-34) D 01/27/18 08:05 Sodium 140 mmol/L (132-148) 01/28/18 08:18 Potassium 4.0 mmol/L (3.6-5.2) 01/28/18 08:18 Chloride 107 mmol/L (98-107) 01/28/18 08:18 Carbon Dioxide 26 mmol/L (22-30) 01/28/18 08:18 Anion Gap 11 (10-20) 01/28/18 08:18 BUN 7 mg/dL (7-17) 01/28/18 08:18 Creatinine 1.1 mg/dL (0.7-1.2) 01/28/18 08:18 Est GFR ( Amer) > 60 01/28/18 08:18 Est GFR (Non-Af Amer) 53 01/28/18 08:18 POC Glucose (mg/dL) 101 mg/dL (65-110) 01/27/18 07:26 Random Glucose 118 mg/dL (65-105) H 01/28/18 08:18 Calcium 8.3 mg/dl (8.6-10.4) L 01/28/18 08:18 Magnesium 1.9 mg/dL (1.6-2.3) 01/26/18 07:51 Total Bilirubin 0.9 mg/dL (0.2-1.3) 01/28/18 08:18 AST 184 U/L (14-36) H D 01/28/18 08:18 ALT 56 U/L (9-52) H D 01/28/18 08:18 Alkaline Phosphatase 92 U/L (38-126) 01/28/18 08:18 Total Protein 6.1 g/dL (6.3-8.3) L 01/28/18 08:18 Albumin 3.3 g/dL (3.5-5.0) L 01/28/18 08:18 Globulin 2.7 gm/dL (2.2-3.9) 01/28/18 08:18 Albumin/Globulin Ratio 1.2 (1.0-2.1) 01/28/18 08:18 Lipase 53 U/L (23-300) 01/22/18 21:30 25-OH Vitamin D Total < 12.8 NG/ML (30.0-100.0) L 01/26/18 09:52 Urine Color Yellow (YELLOW) 01/22/18 22:02 Urine Clarity Hazy (Clear) 01/22/18 22:02 Urine pH 5.0 (5.0-8.0) 01/22/18 22:02 Ur Specific Mcdowell 1.015 (1.003-1.030) 01/22/18 22:02 Urine Protein 1+ mg/dL (NEGATIVE) H 01/22/18 22:02 Urine Glucose (UA) Normal mg/dL (Normal) 01/22/18 22:02 Urine Ketones Negative mg/dL (NEGATIVE) 01/22/18 22:02 Urine Blood 1+ (NEGATIVE) H 01/22/18 22:02 Urine Nitrate Negative (NEGATIVE) 01/22/18 22: Urine Bilirubin Negative (NEGATIVE) 01/22/18 22:02 Urine Urobilinogen Normal mg/dL (0.2-1.0) 01/22/18 22:02 Ur Leukocyte Esterase Neg Jama/uL (Negative) 01/22/18 22:02 Urine WBC (Auto) 3 /hpf (0-5) 01/22/18 22:02 Urine RBC (Auto) 5 /hpf (0-3) H 01/22/18 22:02 Ur Squamous Epith Cells 5 /hpf (0-5) 01/22/18 22:02 Urine Bacteria Rare (<OCC) 01/22/18 22:02 Urine HCG, Qual Negative (NEGATIVE) 01/22/18 22:02 Urine Opiates Screen Negative (NEGATIVE) 01/22/18 23:31 Urine Methadone Screen Negative (NEGATIVE) 01/22/18 23:31 Ur Barbiturates Screen Negative (NEGATIVE) 01/22/18 23:31 Ur Phencyclidine Scrn Negative (NEGATIVE) 01/22/18 23:31 Ur Amphetamines Screen Negative (NEGATIVE) 01/22/18 23:31 U Benzodiazepines Scrn Negative (NEGATIVE) 01/22/18 23:31 U Oth Cocaine Metabols Negative (NEGATIVE) 01/22/18 23:31 U Cannabinoids Screen Positive (NEGATIVE) H 01/22/18 23:31 Alcohol, Quantitative < 10 mg/dl (0-10) 01/22/18 23:31 Blood Type B POSITIVE 01/26/18 12:44 Antibody Screen Negative 01/26/18 12:44 Discharge Exam - Head Exam Head Exam: ATRAUMATIC, NORMAL INSPECTION, NORMOCEPHALIC Discharge Plan - Follow Up Plan Condition: GUARDED Disposition: HOME/ ROUTINE
--- NOTE | 2018-01-28 11:34 | OP ---
PROCEDURE DATE: 01/26/2018 PREOPERATIVE DIAGNOSIS: Burst fracture L1. POSTOPERATIVE DIAGNOSIS: Burst fracture L1. OPERATION: 1. T11-L3 posterior spinal fusion. 2. Use of segmental spinal instrumentation. 3. Use of autograft by means of bone marrow aspiration. SURGEON: Cas Smith MD. CO-SURGEON: Rocky Patiño MD. ANESTHESIA: General endotracheal with intubation. DESCRIPTION OF PROCEDURE: The patient was brought to the operating room. General anesthesia was achieved. Spinal cord monitor leads placed throughout the patient's body. Real time monitoring was done by lawn technician in the room and remote monitoring was done by the physician as well. Intravenous antibiotics were administered. Sequential compression boots were placed to each of the patient's legs. After the antibiotics were administered, a Willams catheter was inserted. The patient was then gently transferred onto the operating table and gently log rolled and placed in the prone position on a José Miguel frame, keeping her abdomen and breasts free from pressure anteriorly. Care was taken to protect the elbows and knees from pressure points. A sterile drape was used to seal off the patient's perineal region from the operative field and her back was sterilely prepped and draped. Level of the incision was noted under fluoroscopy and infiltrated with lidocaine with epinephrine. The incision was made sharply in the midline, and taken out of the subcutaneous tissue using sharp and blunt dissection. Hemostasis was achieved using electrocautery. The fascia was divided and stripped laterally off the spinous processes and lamina out to the level of the transverse processes and/or ribs. Soft tissue attachments were cleared using Heard elevators and electrocautery. Tissues were held back with Gelpi retractors. Fluoroscopic views were taken with markers at the levels and is verified they were at the appropriate levels. At that time, a trocar was placed in the posterior left ilium and 120 mL of bone marrow aspirate was obtained. This was sterilely passed off to the lawn technician who processed it to the harvest system and returned the collected mesenchymal stem cells back to the OR table. The stem cells were then used to process through the IC chamber and soaked strips of Conform hydroxyapatite sponges. Thrombinated Gelfoam powder was used for hemostasis at the donor site. A high-speed drill was then used to decorticate the lamina and facet joints at T11-T12, T12-L1, L1-L2, and L2-L3. It was noted that at the L1 level where young lady sustained her fracture of the vertebral body, that both transverse processes were fractured as well. Under fluoroscopic guidance, the entry point for the right T11 screw was made, and the thoracic gearshift tool created channel through the pedicle. Bony integrity was confirmed with a ball-tip probe and a 4.35 x 45 mm Expedium screw inserted. Similar technique was used on the left side, and another 4.35 x 45 mm screw was inserted. It should be noted we did not do motor testing of the thoracic screws as the patient had a history of a seizure disorder; in fact it was the seizure that most likely caused this injury. At the T12 level, again under fluoroscopic guidance, the entry point was made for the right T12 screw with the drill and the gearshift tool to create the channel. Once the bony integrity was confirmed, a 6 x 45 mm screw was inserted. The same technique was used on the left side, but under preoperative studies, it showed the pedicle to be a little narrower on the left side so 5 x 45 mm screw was inserted. We then moved down the lumbar level where again under fluoroscopic guidance, the high-speed drill, gearshift tool, and the ball-tip probe were used at each level on each side; 6 x 50 mm screws were used at the L2 level and stimulation of the gearshift tool, the shank and top of each screw revealed no electrophysiologic abnormalities. At the L3 level again with fluoroscopy used for stepwise guidance, the drill, gearshift tool, ball-tip probe were used and 7 x 55 mm were used on the right side and 7 x 50 mm Expedium screw used on the left. Again stimulation of the instrument and screws revealed no electrophysiologic abnormalities. An AP view was taken which showed everything to be in good position. Quarter-inch rods were then cut and bent and used to connect the four screws on each side. The caps would then affix the tasha to the screws and these were appropriately tightened and torqued. Final AP and lateral fluoroscopic view showed excellent position of the hardware. The bone grafting substrate which consisted of the IC chamber bone along with Optium putty and the marrow soaked strips of Conform were packed in medially and laterally to the rods to bridge the decorticated surfaces. The wound was closed in layers with interrupted sutures of 0 Vicryl for the muscle and fascia. As each level was closed, the area was irrigated and vancomycin powder applied to help prevent postoperative infection. A 2-0 Vicryl was used for the subcutaneous tissue and the skin was closed with madison. Bacitracin ointment and sterile dressing was applied along with a Band-Aid dressing at the marrow donor site. The patient was then gently transferred back to her bed in the supine position. She was awakened and extubated. She was taken to recovery room in stable condition. She tolerated the procedure well. Estimated blood loss was 100 mL, and she received 2 liters of crystalloid during the operation. Cas Smith MD
--- NOTE | 2018-01-28 13:51 | US ---
Date of service: 01/28/2018 HISTORY: Left Adenexal Mass COMPARISON: None available. TECHNIQUE: Grayscale, color Doppler and spectral evaluation the pelvis performed transabdominally and transvaginally FINDINGS: UTERUS: Measures 5.4 x 2.3 x 3.1 cm. Anteverted. Normal in size and appearance. No fibroid or other mass lesion seen. ENDOMETRIUM: Measures 8 mm in diameter. Unremarkable. CERVIX: No cervical abnormality identified. RIGHT OVARY: Not visualized LEFT OVARY: Measures 3.9 x 2.8 x 3.5 cm. Cyst with debris versus mural nodule measuring 3.2 x 2.3 x 2.9 cm. Normal flow. FREE FLUID: No significant free fluid noted. OTHER FINDINGS: None. IMPRESSION: Left ovarian 3.2 cm cyst with debris versus mural nodule. Contrast-enhanced MRI of the pelvis can be obtained for further characterization as clinically warranted. Nonvisualization of the right ovary.
[2018-01-28] MEDS ORDERED: Diphenhydramine 1% Cream (1 oz) TOP ONE (16:30)
--- NOTE | 2018-01-28 18:36 | CP.PCM.PN ---
Subjective - Date & Time of Evaluation Date of Evaluation: 01/28/18 Time of Evaluation: 09:00 - Subjective Subjective: clinically same Objective - Vital Signs/Intake and Output Vital Signs (last 24 hours): Temp Pulse Resp BP Pulse Ox 99.4 F 108 H 20 117/71 95 01/28/18 15:00 01/28/18 15:00 01/28/18 15:00 01/28/18 15:00 01/28/18 15:00 Intake and Output: 01/28/18 01/28/18 06:59 18:59 Intake Total 2360 1275 Output Total 1550 1100 Balance 810 175 - Medications Medications: Current Medications Acetaminophen (Tylenol 325mg Tab) 650 mg PO Q6 PRN PRN Reason: Pain, Mild (1-3) Last Admin: 01/27/18 19:11 Dose: 650 mg Alprazolam (Xanax) 0.25 mg PO DAILY PRN PRN Reason: Anxiety Stop: 02/01/18 16:05 Last Admin: 01/25/18 16:42 Dose: 0.25 mg Bacitracin (Bacitracin) 1 gm TOP DAILY [facility] Last Admin: 01/28/18 09:41 Dose: 1 applic Docusate Sodium (Colace) 100 mg PO BID [facility] Last Admin: 01/28/18 18:23 Dose: 100 mg Ergocalciferol (Drisdol 50,000 Intl Units Cap) 1 cap PO Q7D [facility] Last Admin: 01/26/18 19:04 Dose: 1 cap Potassium Chloride 20 meq/ (Dextrose/Sodium Chloride) 1,010 mls @ 125 mls/hr IV .Q8H5M [facility] Last Admin: 01/28/18 07:50 Dose: Not Given Ibuprofen (Motrin Tab) 600 mg PO TID PRN PRN Reason: Fever >100.4 F Lamotrigine (Lamictal) 200 mg PO BID [facility] Last Admin: 01/28/18 18:22 Dose: 200 mg Levetiracetam (Keppra) 750 mg PO BID [facility] Last Admin: 01/28/18 18:22 Dose: 750 mg Lidocaine (Lidoderm) 1 ea TD DAILY PRN PRN Reason: BACK Pain, severe (8-10) Loratadine (Claritin) 10 mg PO DAILY [facility] Last Admin: 01/28/18 09:41 Dose: 10 mg Oxycodone HCl (Oxycontin Extended Release Tab) 20 mg PO Q12 [facility] Last Admin: 01/28/18 09:41 Dose: 20 mg Oxycodone HCl (Oxycodone Immediate Release Tab) 5 mg PO Q4H PRN PRN Reason: Pain, moderate (4-7) Oxycodone HCl (Oxycodone Immediate Release Tab) 10 mg PO Q6 PRN PRN Reason: Pain, severe (8-10) Pantoprazole Sodium (Protonix Ec Tab) 40 mg PO DAILY [facility] Last Admin: 01/28/18 09:41 Dose: 40 mg Potassium Chloride (Klor-Con 10) 10 meq PO BRK [facility] Last Admin: 01/28/18 07:57 Dose: 10 meq - Labs Labs: 01/28/18 08:18 01/28/18 08:18 PT 13.3 SECONDS (9.7-12.2) H 01/27/18 08:05 INR 1.2 01/27/18 08:05 APTT 28 SECONDS (21-34) D 01/27/18 08:05
[2018-01-28] MEDS: oxyCODONE 5 mg Immediate Release Tab PO PRN (19:10)
[2018-01-28] MEDS ORDERED: Vancomycin 1 gm/NS 200 ml 1 GM/200 ML BAG IVPB ONE (21:34)
[2018-01-29 01:37] LABS: SQUAMOUS EPITHIAL 1 /hpf (0-5); URINE BILIRUBIN NEGATIVE (NEGATIVE); URINE CLARITY Clear (Clear); URINE COLOR Straw (YELLOW); URINE GLUCOSE (UA) NORMAL (Normal); URINE LEUKOCYTE ESTERASE NEG Leu/uL (Negative); URINE PROTEIN NEGATIVE (NEGATIVE); URINE UROBILINOGEN NORMAL mg/dL (0.2-1.0)
[2018-01-29 01:42] LABS: URINE BLOOD NEGATIVE (NEGATIVE)
[2018-01-29] MEDS: oxyCODONE 5 mg Immediate Release Tab PO PRN ×3 (01:50→13:52)
[2018-01-29 08:20] LABS: BASO % 0.2 % (0.0-2.0); EOS # 0.4 K/uL (0.0-0.7); HEMOGLOBIN 10.5 g/dL (11.0-16.0); LYMPH # 1.8 K/uL (1.0-4.3); LYMPH % 13.6 % (20.0-40.0); MEAN CELL VOLUME 97.1 fL (81.0-99.0); MEAN CORPUSCULAR HEMOGLOBIN 33.2 pg (27.0-31.0); MEAN CORPUSCULAR HGB CONC 34.2 g/dL (33.0-37.0); MEAN PLATELET VOLUME 8.7 fL (7.2-11.7); MONO # 1.1 K/uL (0.0-0.8); MONO % 8.2 % (0.0-10.0); NEUT # 9.8 K/uL (1.8-7.0); RBC 3.16 Mil/uL (3.80-5.20); RED CELL DISTRIBUTION WIDTH 13.3 % (11.5-14.5)
[2018-01-29 08:30] LABS: ALB/GLOB RATIO 1.1 (1.0-2.1); ALT/SGPT 56 U/L (9-52); AST/SGOT 136 U/L (14-36); BLOOD UREA NITROGEN 6 mg/dL (7-17); GFR NON-AFRICAN AMERICAN 53
[2018-01-29] MEDS: oxyCODONE 20 mg ER Tab (oxyCONTIN) PO SCH (09:30)
[2018-01-29] MEDS: Potassium Chloride 10 mEq ER Tab PO SCH (09:31)
[2018-01-29] MEDS: Pantoprazole 40 mg EC Tab PO SCH (09:32)
--- NOTE | 2018-01-29 10:50 | RAD ---
Chest x-ray single frontal view HISTORY: Fever. COMPARISON: 01/27/2018 FINDINGS: Postsurgical changes in the spine. Surgical clips project over the lower chest/upper abdomen. Moderate venous congestion. Moderate left pleural effusion with left basilar airspace opacity. Right hilar prominence. Cardiomegaly. Enlarged ectatic aorta. Degenerative changes in the spine and shoulders. IMPRESSION: Surgical clips project over the lower chest/upper abdomen. Moderate venous congestion. Moderate left pleural effusion with left basilar airspace opacity. Right hilar prominence. Cardiomegaly.
--- NOTE | 2018-01-29 11:13 | CP.PCM.PN ---
Subjective - Date & Time of Evaluation Date of Evaluation: 01/29/18 Time of Evaluation: 11:10 - Subjective Subjective: one andriy spike 101 last PM now af no change in pe wound c and d prob atelectasis or some blood products in fusion bed no contraindication to rehab transfer suggest trans quynh Objective - Vital Signs/Intake and Output Vital Signs (last 24 hours): Temp Pulse Resp BP Pulse Ox 99.6 F 88 20 102/67 98 01/29/18 09:10 01/29/18 09:10 01/29/18 09:10 01/29/18 09:10 01/29/18 09:10 Intake and Output: 01/29/18 01/29/18 06:59 18:59 Intake Total 1580 Output Total 1650 Balance -70 - Medications Medications: Current Medications Acetaminophen (Tylenol 325mg Tab) 650 mg PO Q6 PRN PRN Reason: Pain, Mild (1-3) Last Admin: 01/27/18 19:11 Dose: 650 mg Acetaminophen (Tylenol 325mg Tab) 650 mg PO Q6 PRN PRN Reason: temp >101 Alprazolam (Xanax) 0.25 mg PO DAILY PRN PRN Reason: Anxiety Stop: 02/01/18 16:05 Last Admin: 01/25/18 16:42 Dose: 0.25 mg Bacitracin (Bacitracin) 1 gm TOP DAILY [facility] Last Admin: 01/28/18 09:41 Dose: 1 applic Docusate Sodium (Colace) 100 mg PO BID [facility] Last Admin: 01/29/18 09:31 Dose: 100 mg Ergocalciferol (Drisdol 50,000 Intl Units Cap) 1 cap PO Q7D [facility] Last Admin: 01/26/18 19:04 Dose: 1 cap Potassium Chloride 20 meq/ (Dextrose/Sodium Chloride) 1,010 mls @ 125 mls/hr IV .Q8H5M [facility] Last Admin: 01/28/18 23:10 Dose: Not Given Cefepime HCl 1 gm/ Dextrose 50 mls @ 100 mls/hr IVPB Q12H [facility]; Protocol Last Admin: 01/29/18 09:33 Dose: 100 mls/hr Ibuprofen (Motrin Tab) 600 mg PO TID PRN PRN Reason: Fever >100.4 F Lamotrigine (Lamictal) 200 mg PO BID [facility] Last Admin: 01/29/18 09:31 Dose: 200 mg Levetiracetam (Keppra) 750 mg PO BID [facility] Last Admin: 01/29/18 09:32 Dose: 750 mg Lidocaine (Lidoderm) 1 ea TD DAILY PRN PRN Reason: BACK Pain, severe (8-10) Loratadine (Claritin) 10 mg PO DAILY [facility] Last Admin: 01/29/18 09:32 Dose: 10 mg Oxycodone HCl (Oxycontin Extended Release Tab) 20 mg PO Q12 [facility] Last Admin: 01/29/18 09:30 Dose: 20 mg Oxycodone HCl (Oxycodone Immediate Release Tab) 5 mg PO Q4H PRN PRN Reason: Pain, moderate (4-7) Last Admin: 01/29/18 07:44 Dose: 5 mg Oxycodone HCl (Oxycodone Immediate Release Tab) 10 mg PO Q6 PRN PRN Reason: Pain, severe (8-10) Pantoprazole Sodium (Protonix Ec Tab) 40 mg PO DAILY [facility] Last Admin: 01/29/18 09:32 Dose: 40 mg Potassium Chloride (Klor-Con 10) 10 meq PO BRK [facility] Last Admin: 01/29/18 09:31 Dose: 10 meq - Labs Labs: 01/29/18 07:56 01/29/18 07:56 PT 13.3 SECONDS (9.7-12.2) H 01/27/18 08:05 INR 1.2 01/27/18 08:05 APTT 28 SECONDS (21-34) D 01/27/18 08:05
[2018-01-29] MEDS: Bacitracin Ointment 30 GM TUBE TOP SCH (12:33)
[2018-01-29] MEDS: Potassium Chloride 20 MEQ in Dextrose 5%/0.9% NS 1,000 ML IV SCH (14:58)
[2018-01-29 15:39] VITALS: BP 98/61; PULSE 100; TEMP 98.3; O2SAT 96
--- NOTE | 2018-01-29 16:07 | CP.PCM.PN ---
Subjective - Date & Time of Evaluation Date of Evaluation: 01/29/18 Time of Evaluation: 16:00 - Subjective Subjective: Progress note. Attending: Dr. Grant. Pt seen and examined at bedside. Resting comfortably. No complaints. Plan for discharge today. Objective - Vital Signs/Intake and Output Vital Signs (last 24 hours): Temp Pulse Resp BP Pulse Ox 98.3 F 100 H 20 98/61 L 96 01/29/18 15:39 01/29/18 15:39 01/29/18 15:39 01/29/18 15:39 01/29/18 15:39 Intake and Output: 01/29/18 01/29/18 06:59 18:59 Intake Total 1580 Output Total 1650 Balance -70 - Medications Medications: Current Medications Acetaminophen (Tylenol 325mg Tab) 650 mg PO Q6 PRN PRN Reason: Pain, Mild (1-3) Last Admin: 01/27/18 19:11 Dose: 650 mg Acetaminophen (Tylenol 325mg Tab) 650 mg PO Q6 PRN PRN Reason: temp >101 Alprazolam (Xanax) 0.25 mg PO DAILY PRN PRN Reason: Anxiety Stop: 02/01/18 16:05 Last Admin: 01/25/18 16:42 Dose: 0.25 mg Bacitracin (Bacitracin) 1 gm TOP DAILY [facility] [place] Last Admin: 01/29/18 12:33 Dose: 1 applic Docusate Sodium (Colace) 100 mg PO BID [facility] Last Admin: 01/29/18 09:31 Dose: 100 mg Ergocalciferol (Drisdol 50,000 Intl Units Cap) 1 cap PO Q7D [facility] [place] Last Admin: 01/26/18 19:04 Dose: 1 cap Potassium Chloride 20 meq/ (Dextrose/Sodium Chloride) 1,010 mls @ 125 mls/hr IV .Q8H5M [facility] [place] Last Admin: 01/29/18 14:58 Dose: 125 mls/hr Cefepime HCl 1 gm/ Dextrose 50 mls @ 100 mls/hr IVPB Q12H [facility] [place]; Protocol Last Admin: 01/29/18 09:33 Dose: 100 mls/hr Ibuprofen (Motrin Tab) 600 mg PO TID PRN PRN Reason: Fever >100.4 F Lamotrigine (Lamictal) 200 mg PO BID [facility] [place] Last Admin: 01/29/18 09:31 Dose: 200 mg Levetiracetam (Keppra) 750 mg PO BID [facility] [place] Last Admin: 01/29/18 09:32 Dose: 750 mg Lidocaine (Lidoderm) 1 ea TD DAILY PRN PRN Reason: BACK Pain, severe (8-10) Loratadine (Claritin) 10 mg PO DAILY [facility] [place] Last Admin: 01/29/18 09:32 Dose: 10 mg Oxycodone HCl (Oxycontin Extended Release Tab) 20 mg PO Q12 [facility] [place] Last Admin: 01/29/18 09:30 Dose: 20 mg Oxycodone HCl (Oxycodone Immediate Release Tab) 5 mg PO Q4H PRN PRN Reason: Pain, moderate (4-7) Last Admin: 01/29/18 13:52 Dose: 5 mg Oxycodone HCl (Oxycodone Immediate Release Tab) 10 mg PO Q6 PRN PRN Reason: Pain, severe (8-10) Pantoprazole Sodium (Protonix Ec Tab) 40 mg PO DAILY [facility] [place] Last Admin: 01/29/18 09:32 Dose: 40 mg Potassium Chloride (Klor-Con 10) 10 meq PO BRK [facility] [place] Last Admin: 01/29/18 09:31 Dose: 10 meq - Labs Labs: 01/29/18 07:56 01/29/18 07:56 PT 13.3 SECONDS (9.7-12.2) H 01/27/18 08:05 INR 1.2 01/27/18 08:05 APTT 28 SECONDS (21-34) D 01/27/18 08:05 - Constitutional Appears: No Acute Distress - Head Exam Head Exam: ATRAUMATIC, NORMAL INSPECTION, NORMOCEPHALIC - Eye Exam Eye Exam: EOMI - ENT Exam ENT Exam: Mucous Membranes Moist - Neck Exam Neck Exam: Full ROM, Normal Inspection - Respiratory Exam Respiratory Exam: absent: Respiratory Distress - Cardiovascular Exam Cardiovascular Exam: +S1, +S2 - GI/Abdominal Exam GI & Abdominal Exam: Soft, Normal Bowel Sounds. absent: Tenderness - Extremities Exam Extremities Exam: Full ROM, Normal Inspection - Neurological Exam Neurological Exam: Alert, Awake, CN II-XII Intact, Oriented x3 - Psychiatric Exam Psychiatric exam: Flat Affect - Skin Skin Exam: Rash Assessment and Plan - Assessment and Plan (Free Text) Assessment: This is a 47 yo female with Seizure Neurology Consulted (Dr. Alanis), Recs Appreciated Seizure precautions. Refrain from meds that will lower seizure threshold including Tramadol Head CT (Admission): No acute intracranial pathology identified. Under aeration of the left mastoid air cells; correlate for history of mastoiditis. EEG (01/23): Follow UP Meds: Keppra 750 BID [facility] <---Inc. during this visit Lamictal 200mg PO BID [facility]. Lumbar Compression Fracture: s/p spinal fusion sx. Neurosurgery Consulted (Dr. Luis Salazar), Recs appreciated Cardiology Consulted for Cardiac Clearance (Dr. Garcia) CT Abd/Pelvis (Admission): 1.) No acute abdominal or pelvic abnormality. 2.) 3.8 x 6.3 cm cystic mass in the left adnexa, the differential considerations include simple cyst, cystadenoma and cystadenocarcinoma. Clinical follow-up is advised and given the size of the cystic mass gynecologic consult is recommended. 3.) Age indeterminate superior endplate compression fracture in the L1 vertebral body with approximately 50% loss of central vertebral height without retropulsion, new since February 2014. With the stated history of trauma, the possibility of this being an acute fracture is likely however MRI without intravenous contrast may be performed for definitive evaluation of the age of the fracture. Lumbar Spine MRI (01/23/18): 1. Acute superior endplate compression fracture in the L1 vertebral body with approximately 50% loss of central vertebral height and mild posterosuperior retropulsion of fracture fragment which indents the ventral thecal sac without cord compression or central spinal canal stenosis. 2. Mild multilevel degenerative disc disease, worse at L4-5 with a diffuse posterior disc bulge and superimposed left foraminal and far lateral annular tear and disc protrusions which abut the exiting left L4 nerve root with resultant mild spinal canal stenosis, mild right and moderate left neural foraminal narrowing.\ Thoracis Spine MRI (01/23/18): 1. No acute fracture in the thoracic spine. 2. Mild multilevel degenerative disc disease with multilevel Schmorl's nodes, the largest at the superior endplate of T12 vertebral body with mild surrounding vasogenic edema. No spinal canal stenosis or neural foraminal narrowing. PT/OT Meds: Tylenol PRN Ibuprofen Q8H PRN Lidoderm Patch. Hypotenion (Acute) Likely 2/2 to general anesthesia PERIANESTHESIA NURSE called during hospital stay. given bolus GABRIEL resolved. Cystic Mass of Left Adnexa Incidental Finding on CT CT Abd/Pelvis (Admission): 1.) No acute abdominal or pelvic abnormality. 2.) 3.8 x 6.3 cm cystic mass in the left adnexa, the differential considerations include simple cyst, cystadeno ma and cystadenocarcinoma. Clinical follow-up is advised and given the size of the cystic mass gynecologic consult is recommended. Will Order Pelvic US once patient is in less pain and more stable. Will Consider inpatient vs outpatient Ob-last marker Referral post Pelvic US results. Hypertension: continue to monitor Hypokalemia continue to monitor Anxiety continue to monitor consider psych visit outpatient GI/DVT ppx protonix daily discussed with Dr. Grant.
--- NOTE | 2018-01-29 18:05 | CP.PCM.PN ---
Subjective - Date & Time of Evaluation Date of Evaluation: 01/29/18 Time of Evaluation: 08:15 - Subjective Subjective: clinically same Objective - Vital Signs/Intake and Output Vital Signs (last 24 hours): Temp Pulse Resp BP Pulse Ox 98.3 F 100 H 20 98/61 L 96 01/29/18 15:39 01/29/18 15:39 01/29/18 15:39 01/29/18 15:39 01/29/18 15:39 Intake and Output: 01/29/18 01/29/18 06:59 18:59 Intake Total 1580 480 Output Total 1650 Balance -70 480 - Medications Medications: Current Medications Acetaminophen (Tylenol 325mg Tab) 650 mg PO Q6 PRN PRN Reason: Pain, Mild (1-3) Last Admin: 01/27/18 19:11 Dose: 650 mg Acetaminophen (Tylenol 325mg Tab) 650 mg PO Q6 PRN PRN Reason: temp >101 Alprazolam (Xanax) 0.25 mg PO DAILY PRN PRN Reason: Anxiety Stop: 02/01/18 16:05 Last Admin: 01/25/18 16:42 Dose: 0.25 mg Bacitracin (Bacitracin) 1 gm TOP DAILY [facility] Last Admin: 01/29/18 12:33 Dose: 1 applic Docusate Sodium (Colace) 100 mg PO BID [facility] Last Admin: 01/29/18 17:16 Dose: 100 mg Ergocalciferol (Drisdol 50,000 Intl Units Cap) 1 cap PO Q7D [facility] Last Admin: 01/26/18 19:04 Dose: 1 cap Potassium Chloride 20 meq/ (Dextrose/Sodium Chloride) 1,010 mls @ 125 mls/hr IV .Q8H5M [facility] Last Admin: 01/29/18 14:58 Dose: 125 mls/hr Cefepime HCl 1 gm/ Dextrose 50 mls @ 100 mls/hr IVPB Q12H [facility]; Protocol Last Admin: 01/29/18 09:33 Dose: 100 mls/hr Ibuprofen (Motrin Tab) 600 mg PO TID PRN PRN Reason: Fever >100.4 F Lamotrigine (Lamictal) 200 mg PO BID [facility] Last Admin: 01/29/18 17:16 Dose: 200 mg Levetiracetam (Keppra) 750 mg PO BID [facility] Last Admin: 01/29/18 17:16 Dose: 750 mg Lidocaine (Lidoderm) 1 ea TD DAILY PRN PRN Reason: BACK Pain, severe (8-10) Loratadine (Claritin) 10 mg PO DAILY [facility] Last Admin: 01/29/18 09:32 Dose: 10 mg Oxycodone HCl (Oxycontin Extended Release Tab) 20 mg PO Q12 [facility] Last Admin: 01/29/18 09:30 Dose: 20 mg Oxycodone HCl (Oxycodone Immediate Release Tab) 5 mg PO Q4H PRN PRN Reason: Pain, moderate (4-7) Last Admin: 01/29/18 13:52 Dose: 5 mg Oxycodone HCl (Oxycodone Immediate Release Tab) 10 mg PO Q6 PRN PRN Reason: Pain, severe (8-10) Pantoprazole Sodium (Protonix Ec Tab) 40 mg PO DAILY [facility] Last Admin: 01/29/18 09:32 Dose: 40 mg Potassium Chloride (Klor-Con 10) 10 meq PO BRK [facility] Last Admin: 01/29/18 09:31 Dose: 10 meq - Labs Labs: 01/29/18 07:56 01/29/18 07:56 PT 13.3 SECONDS (9.7-12.2) H 01/27/18 08:05 INR 1.2 01/27/18 08:05 APTT 28 SECONDS (21-34) D 01/27/18 08:05
== END 2018-01-29 19:52 | DRG 460 ==
LOC: C.ER 20:20 → C.6T 01-23 00:45
PROVIDERS: ADMIT Internal Medicine Nephrology; ATTEND Internal Medicine Nephrology
PROC: 0RGA071 Fusion of Thoracolumbar Vertebral Joint with Autologous Tissue Substitute, Posterior Approach, Posterior Column, Open Approach (ICD-10-PCS; 2018-01-26)
PROC: 0RG6071 Fusion of Thoracic Vertebral Joint with Autologous Tissue Substitute, Posterior Approach, Posterior Column, Open Approach (ICD-10-PCS; 2018-01-26)
PROC: 07DR3ZZ Extraction of Iliac Bone Marrow, Percutaneous Approach (ICD-10-PCS; 2018-01-26)
PROC: 0SG1071 Fusion of 2 or more Lumbar Vertebral Joints with Autologous Tissue Substitute, Posterior Approach, Posterior Column, Open Approach (ICD-10-PCS; principal; 2018-01-26 14:15)
DX: S32.011A Stable burst fracture of first lumbar vertebra, initial encounter for closed fracture (principal); G40.909 Epilepsy, unspecified, not intractable, without status epilepticus; M81.0 Age-related osteoporosis without current pathological fracture; M48.061 Spinal stenosis, lumbar region without neurogenic claudication; M51.36 Other intervertebral disc degeneration, lumbar region; I95.81 Postprocedural hypotension; T41.295A Adverse effect of other general anesthetics, initial encounter; N17.9 Acute kidney failure, unspecified; E87.6 Hypokalemia; J98.11 Atelectasis; R79.89 Other specified abnormal findings of blood chemistry; W18.30XA Fall on same level, unspecified, initial encounter; I10 Essential (primary) hypertension; G47.33 Obstructive sleep apnea (adult) (pediatric); J43.9 Emphysema, unspecified; F41.9 Anxiety disorder, unspecified; N83.202 Unspecified ovarian cyst, left side; F17.210 Nicotine dependence, cigarettes, uncomplicated; Y92.008 Other place in unspecified non-institutional (private) residence as the place of occurrence of the external cause; Z90.49 Acquired absence of other specified parts of digestive tract